=== PATIENT | female | born 1940 | race Caucasian/White ===

== ENCOUNTER 2021-01-09 08:52 | Outpatient (CLI) | payer OTHER, SELFPAY ==
--- NOTE | ~2021-01-09 | MM_ITS ---
EXAMINATION: MM screening juan BI w ember HISTORY: Screening TECHNIQUE: Craniocaudal and mediolateral oblique 3-D tomosynthesis images were obtained and synthetic 2-D images were generated. CAD analysis was submitted and interpreted. COMPARISON: Comparison to multiple prior studies sequentially, with oldest reviewed study dated 12/07. BREAST PARENCHYMAL COMPOSITION: There are scattered areas of fibroglandular density. FINDINGS: There is developing focal asymmetry superiorly in the right breast on MLO view. The left br east is stable without evidence for malignancy. IMPRESSION: 1. Developing right breast asymmetry superiorly on the right breast in MLO view. 2. Additional mammographic views and possible breast ultrasound are recommended. BI-RADS Category 0: Incomplete: Needs additional imaging evaluation. Reviewed, dictated and finalized at location A. IMPRESSION: 1. Developing right breast asymmetry superiorly on the right breast in MLO view . 2. Additional mammographic views and possible breast ultrasound are recommended . BI-RADS Category 0: Incomplete: Needs additional imaging evaluation.
== END 2021-01-09 08:53 | disposition home or self-care (01) ==
LOC: ANHIMG 08:54
PROVIDERS: PCP Family Medicine; Visit Provider Physician Assistant
DX: Z12.31 Encounter for screening mammogram for malignant neoplasm of breast (principal); R92.8 Other abnormal and inconclusive findings on diagnostic imaging of breast
CPT/HCPCS: 77063; 77067

== ENCOUNTER → 2021-01-30 08:32 | Outpatient (CLI) | payer OTHER, SELFPAY ==
--- NOTE | ~2021-01-30 | MMUS_ITS ---
EXAMINATION: MM diagnostic mammo unilat RT, US breast RT limited HISTORY: Developing mammographic asymmetry reported superiorly and right breast on screening MLO view of 01/09/2021 TECHNIQUE: Additional 3-D tomosynthesis images of were performed and synthetic 2-D images were genera wili. CAD analysis was submitted and interpreted. High resolution upper inner and upper outer right br east ultrasound was performed. COMPARISON: Serial mammographic examinations dating back to 11/19/2013 FINDINGS: MAMMOGRAPHIC FINDINGS: There is asymmetric density in the mid upper right breast. ULTRASOUND: At 12:00 5 cm from the nipple there is an irregular hypoechoic area measuring 12 x 3 x 7 mm. No inter nal vascularity is noted. There is however some shadowing. There is a nearby smaller approximately 2.6 x 3.4 mm similar irregular hypoechoic lesion with a small tail-like projection. Ultrasound-guided biopsy of these 2 areas is recommended. IMPRESSION: 1. Suspicious irregular hypoechoic lesions at 12:00 5 cm from nipple 2. Ultrasound-guided biopsy is recommended BI-RADS category 4, suspicious findings. Dr. Rivero telephoned the report and ultrasound guided biopsy recommendation on 01/30/2021 at 1000 hours to Tyrese Fowler. Reviewed, dictated and finalized at location A. IMPRESSION: 1. Suspicious irregular hypoechoic lesions at 12:00 5 cm from nipple 2. Ultrasound-guided biopsy is recommended BI-RADS category 4, suspicious findings. Dr. Rivero telephoned the report and ultrasound guided biopsy recommendation on at 1000 hours to Tyrese Fowler.
== END ==
PROVIDERS: PCP Family Medicine; Visit Provider Physician Assistant
DX: R92.8 Other abnormal and inconclusive findings on diagnostic imaging of breast (principal)
CPT/HCPCS: 76642; 77065

== ENCOUNTER 2021-03-30 09:10 | Outpatient (CLI) | payer OTHER, SELFPAY ==
--- NOTE | ~2021-03-30 | MMUS_ITS ---
US breast biopsy RT w image, MM post biopsy invasive RT EXAMINATION: US GUIDED NEEDLE BIOPSY WITH VAC UUM ASSISTANCE DATE: 03/30/2021 10:26 CDT INDICATION: Right breast mass seen on recent examination. Ultrasound-guided core biopsy is requested to evaluate for malignancy. TECHNIQUE AND FINDINGS: The risks and potential benefits of the procedure were discussed with the patient, and written inform ed consent was obtained. After sterile preparation of the right breast, 1% lidocaine was utilized fo r local anesthesia. 1% lidocaine with epinephrine was used for deep anesthesia. A 10G vacuum-assisted biopsy gun needle was advanced through to the outer edge of the region of inter est from a superior approach utilizing sonographic guidance. A total of three tissue core samples we re obtained through the lesion. Lesion located in the upper central aspect of the right breast. An In rad tissue marker clip was then placed at the biopsy site. Hemostasis was achieved. The patient tolerated procedure well and there was no evidence of immediate complication. The patien t was given verbal instructions partly is from the department. Right breast mammograms to document t issue marker clip placement. The tissue samples were submitted to surgical pathology for histologic a nalysis. IMPRESSION: 1. Successful ultrasound-guided vacuum-assisted biopsy of right breast mass with tissue marker place ment. Please refer to pathology report for histologic analysis. Reviewed, dictated and finalized at location A. IMPRESSION: 1. Successful ultrasound-guided vacuum-assisted biopsy of right breast mass wi th tissue marker placement. Please refer to pathology report for histologic zachary lysis.
== END 2021-03-30 09:11 | disposition home or self-care (01) ==
PROVIDERS: PCP Family Medicine; Visit Provider Family Medicine
DX: N63.11 Unspecified lump in the right breast, upper outer quadrant (principal)
CPT/HCPCS: 19083; 88305; 88341; 88342; A4648

== ENCOUNTER 2021-06-15 09:30 | Outpatient (RCR) | payer OTHER, SELFPAY ==
--- NOTE | 2021-05-08 09:48 | PTOPEVAL ---
Thank you for referring Nathaly Narayan to [facility].? The patient is scheduled to be seen for therapy? 1-2 x/week for 8 weeks. Please review, sign, date and return this plan of care AVEL. I agree with and certify that the following plan of care is medically necessary. Referring Physician Date Attending Provider: Juliana Dior MD Diagnosis right hip trochanteric bursitis Onset February 2021 Additional Evaluation Detail She has a flight of steps to basement and ramp to enter house. She tries to perform steps daily. Subjective Information She has been having issues Query Text:As Reported By Patient/ with right knee dislocating Family and going out at times. She wears a left compression sleeve knee brace. She has had the knee cap relocated in place 4-5x's. She received 2 cortison injection and steriods for the hip pain. The pain has improved to tolerable level now. She walks the TM up to .5 mile at slow speed. 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 She has difficulty with steps more related to heart issues vs leg. She limits her walking when her leg is painful. she has pain with sit<>stand motion from all surfaces. Previous Treatments Previous Treatments For This Problem 2014 acute rehab Pain Assessment Self Report Pain Assessment Right Knee(s) Reported Pain Level 0 Pain Description Aching Lowest Pain Intensity 0 Greatest Pain Intensity 3 Right Hip(s) Reported Pain Level 2 Pain Description Sharp Lowest Pain Intensity 0 Greatest Pain Intensity 5 Lower Extremity Muscle Strength Testing Hip Strength Left Hip Flexion Strength 3+ Fair + Hip Extension Strength 3- Fair - Hip Abduction Strength 3- Fair - Right Hip Flexion Strength 3 Fair Hip Extension Strength 3- Fair - Hip Abduction Strength 3- Fair - Knee Strength Left Knee Flexion Strength 3 Fair Knee Extension Strength 4+ Good + Right Knee Flexion Strength 3+ Fair + Knee Extension Strength 4- Good - Mu
--- NOTE | 2021-06-15 10:23 | PTOPEVAL ---
Physical therapy progress note/discharge note Thank you for referring Nathaly Narayan to [facility] She has attended 6 therapy visits from 05/08/21 to 06/14/21 to address hip pain. She has achieved maximal potential with skilled therapy services at this time. Will plan to DC skilled therapy services at this time with recommendations for Nathaly to continue with her HEP. Please review, sign, date and return this discharge summary AVEL. I agree with and certify that the following plan of care is medically necessary. Referring Physician Date Attending Provider: Juliana Dior MD Problem bursitis Onset February 2021 Additional Evaluation Detail She has a flight of steps to basement and ramp to enter house. She tries to perform steps daily. Subjective Information She is having swelling with Query Text:As Reported By Patient/ leg swelling due to medication Family changes. She denies any issues with right knee dislocating and going out since start of therapy. She was wearing a left compression sleeve knee brace, until she cut her leg on the car door. She walks the TM up to .5 mile at slow speed, but c/o SOB with walking. She reed 15 minutes. 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 She reports tightening of leg with walking. Pain Assessment Right Knee(s) Reported Pain Level 1 Pain Frequency Intermittent Lowest Pain Intensity 0 Greatest Pain Intensity 2 Right Hip(s) Reported Pain Level 0 Lowest Pain Intensity 0 Greatest Pain Intensity 0 Lower Extremity Muscle Strength Testing Hip Strength Left Hip Flexion Strength 4 Good Hip Extension Strength 3- Fair - Hip Abduction Strength 3- Fair - Right Hip Flexion Strength 4 Good Hip Extension Strength 3- Fair - Hip Abduction Strength 3- Fair - Knee Strength Left Knee Flexion Strength 3+ Fair + Knee Extension Strength 4+ Good + Right Knee Flexion Strength 4- Good - Knee Extension Strength 4+ Good + Muscle Length Testing Muscle Length Testing Two-Joint Hip Flexor Shortened Muscles Short (R) Iliopsoas,Short (L) Iliopsoas,Short (R) Rectus
== END 2021-07-24 10:04 | disposition home or self-care (01) ==
LOC: ANHPT 09:30
PROVIDERS: PCP Family Medicine; Visit Provider Family Medicine
DX: M70.61 Trochanteric bursitis, right hip (principal); S83.004D Unspecified dislocation of right patella, subsequent encounter
CPT/HCPCS: 97110; 97112; 97140; 97162

== ENCOUNTER 2021-09-08 10:47 | Inpatient (IN) | payer OTHER, SELFPAY ==
[2021-09-08] VITALS (14 sets, daily range): BP systolic 75–146; BP diastolic 36–69; PULSE 71–90; RESP 16–18; TEMP 36–36.5; O2SAT 96–100
--- NOTE | ~2021-09-08 | CT_ITS ---
EXAMINATION: CT abdomen pelvis w con DATE: 09/08/2021 12:52 INDICATION: Right abdominal pain. TECHNIQUE: Computed tomography (CT) of the abdomen and pelvis was performed with 100 mL Omnipaque 350 intravenous contrast. Automated exposure control and iterative reconstruction technique were employe d. The dose-length product was 1091.51 mGy-cm. COMPARISON: CT abdomen and pelvis 01/30/2016 FINDINGS: The visualized portions of the lung bases demonstrate mild atelectasis. There is smooth sep israel thickening bilaterally, consistent with mild pulmonary edema. There are multiple nodules bilatera lly measuring up to 4 mm, likely benign. No pleural effusion. There is left atrial enlargement of the heart. There are coronary artery calcifications. No pericardial effusion. There is a large sliding h iatal hernia. There are cysts in liver measuring up to 8 mm. There are low-attenuation lesions in the spleen measuring up to 10 mm. There is a peripheral wedge-shaped area of hypoattenuation in the sple en, consistent with infarct. There is a chronic 2.1 cm hyperenhancing mass in the spleen, likely rhea gn. The pancreas and left adrenal gland are normal. There is a chronic 9 mm mass in the right adrenal gland, likely an adenoma. There is cortical thinning of the kidneys. There are cysts in the kidneys measuring up to 9 mm on the right. There is diverticulosis of the colon without evidence of diverticu litis. There are no dilated loops of bowel. The appendix is normal. There are no pathologically enlar ged lymph nodes. There is no free intraperitoneal fluid. There is levoscoliosis of thoracic lumbar sp ine. There is a chronic compression fracture of L4. There is severe thoracolumbar spondylosis. IMPRESSION: 1. Mild pulmonary edema. 2. Large sliding hiatal hernia. 3. Small splenic lesions, worsened from 01/30/2016, likely granulomatous disease. 4. Small infarct of the spleen. Reviewed, dictated and finalized at location A. RIBUTION TRANSFORMER ASSEMBLER
--- NOTE | ~2021-09-08 | XR_ITS ---
EXAMINATION: XR chest 1V portable INDICATION: Cough TECHNIQUE: Portable AP chest at 1220 hours COMPARISON: 09/28/2019 FINDINGS: There are patchy bilateral airspace opacities. No pleural effusion or pneumothorax is ident ified. Cardiomegaly is noted. There is osteoarthritis of the shoulders IMPRESSION: 1. Patchy bilateral airspace opacities which could reflect atelectasis versus pneumonia versus pulmon анна edema. Reviewed, dictated and finalized at location B. ESS LABORATORY SPECIALIST IMPRESSION: 1. Patchy bilateral airspace opacities which could reflect atelectasis versus p neumonia versus pulmonary edema.
[2021-09-08 11:41] LABS: Basophils Absolute Auto 0.1 K/mm3 (0.0-0.1); Basophils Percent Auto 0.6 % (0.2-1.2); Eosinophils Absolute Auto 0.1 K/mm3 (0-0.3); Eosinophils Percent Auto 1.6 % (0-4.4); Hematocrit 31.3 % (37.0-47.0); Hemoglobin 9.6 g/dL (12.0-15.0); Immature Granulocyte Absolute 0.03 K/mm3 (0.00-0.031); Immature Granulocyte Percent A 0.4 % (0-0.5); Lymphocytes Percent Auto 9.5 % (18.3-44.2); Mean Corpuscular HGB Conc 30.7 g/dl (32-36); Mean Corpuscular Volume 81.5 fl (80-100); Mean Platelet Volume 10.4 fl (7.4-10.4); Monocytes Absolute Auto 0.8 K/mm3 (0.1-0.6); Monocytes Percent Auto 9.2 % (2.6-8.5); Neutrophils Absolute Auto 6.6 K/mm3 (1.3-6.7); Neutrophils Percent Auto 78.7 % (45.5-73.1); Platelet Count Result 291 k/mm3 (150-375); Red Blood Count 3.84 M/mm3 (4.2-5.4); Red Cell Distribution Width 16.5 % (11.5-14.5); White Blood Count 8.4 K/mm3 (4.5-10.0)
[2021-09-08 11:52] LABS: Alanine Aminotransferase 13 U/L (4-35); Albumin Level 3.8 g/dL (3.5-5.1); Alkaline Phosphatase 81 U/L (38-126); Anion Gap 7 mmol/L (8-16); Aspartate Amino Transferase 21 U/L (14-36); Bilirubin,Total 0.5 mg/dL (0.2-1.3); Blood Urea Nitrogen 47 mg/dL (7-17); Calcium 8.5 mg/dL (8.4-10.2); Carbon Dioxide 31 mmol/L (22-30); Chloride 103 mmol/L (98-107); Estimated CRCL calculation 32 ml/min; Estimated Glomerular Filt Rate 39; Glucose 106 mg/dL (65-110); INR 1.2; Potassium 3.9 mmol/L (3.4-5.0); Prothrombin Time 14.8 Seconds (11.1-14.7); Sodium 141 mmol/L (137-145)
[2021-09-08 11:53] LABS: Partial Thromboplastin Time 30.9 SECONDS (22.3-36.8)
--- NOTE | 2021-09-08 12:31 | ED.GENADULT ---
HPI - General Adult General Chief complaint: GI Bleed Stated complaint: shortness of breath Time Seen by Provider: 09/08/21 12:04 Source: RN notes reviewed History of Present Illness HPI narrative: Patient presents emergency department from home for GI bleed. Patient states for the past week she has been having black tarry stools states that she is having approximately 2 episodes a day she states that with this she is having shortness of breath whenever she gets up and moves around as well as pain in her right mid back that radiates around her abdomen she states this usually occurs approximately 30 minutes after eating pain is described as sharp and stabbing patient states she is on apixaban she denies any fevers or chills chest pain nausea vomiting diarrhea or any other symptoms Related Data Home Medications Medication Instructions Recorded Confirmed calcium carbonate 600 mg calcium 600 mg PO DAILY 09/22/19 08/18/21 (1,500 mg) tablet cholecalciferol (vitamin D3) 50 4,000 unit PO DAILY 09/22/19 08/18/21 mcg (2,000 unit) tablet ferrous sulfate [FerrouSul] 325 mg PO DAILY 09/28/19 08/18/21 Allergies Allergy/AdvReac Type Severity Reaction Status Date / Time heparin Allergy Unknown Swelling Verified 09/08/21 11:31 Heparin Analogues Allergy Unknown Swelling Verified 09/08/21 11:31 mold Allergy Unknown Unknown Verified 09/08/21 11:31 Review of Systems Review of Systems: Gen.: Denies fevers or chills ENT: Denies congestion Respiratory: Reports shortness of breath CV: Denies chest pain or palpitations GI: See HPI denies burning, urgency, frequency or hematuria Musculoskeletal: Denies back pain or muscle pain Neuro: Denies numbness, tingling, weakness or focal weakness Skin: Denies rash Except as documented, all other systems reviewed and negative [facility] Past Medical History Medical History (Updated 09/08/21 @ 14:52 by Marko Romero DO) Anemia Atherosclerosis of abdominal aorta Borderline diabetes Chronic diastolic congestive heart failure Echocardiogram February 2019: Normal left ventricular systolic function with EF of 60-65%, diastolic dysfunction with increased left heart filling pressures with E/E'of 15, atrial fibrillation, moderate left atrial enlargement, mild right atrial enlargement, small pericardial effusion. Descending aortic aneurysm (04/07/17) Diverticulosis Colonoscopy performed by Dr. Diaz March 2016. Esophageal stricture With history of dilatation. Gastroesophageal reflux disease Hiatal hernia Hypertension Hypertensive retinopathy of both eyes Osteopenia after menopause Paroxysmal atrial fibrillation Peripheral vascular disease Shingles (2015) Surgical History Surgical History (Updated 09/08/21 @ 14:25 by Oriana Franco PA-C) History of cholecystectomy (11/2013) History of total bilateral knee replacement Both were replaced in 2001 with right knee periprosthetic fracture March 2015. Status post cataract extraction of both eyes with insertion of intraocular lens Family History Family History Mother Family history of arthritis Social History Social History (Updated 09/08/21 @ 14:25 by Oriana Franco PA-C) Social History: The patient is and lives in her own home in [place]. She is a lifelong nonsmoker and does not drink alcohol or use illicit substances. She does have a history of secondhand smoke exposure. She reports that all of her siblings suffer from COPD. Code status is DNR per patient request. She would like her daughter Marleni Carrillo to be her surrogate decision maker. She has 3 children 1 lives in [facility], 1 lives in [place], and 1 lives in [facility]. Her primary care physician is Dr. Juliana Dior. Second hand tobacco smoke exposure: No Alcohol intake: never Substance use: never Substance use type: does not use Exam Narrative: APPEARANCE: No acute distr
--- NOTE | 2021-09-08 13:16 | ECG_ITS ---
Measurements Intervals [place] Rate: 80 P: TN: 0 QRS: 40 QRSD: 90 T: 25 QT: 391 QTc: 451 Interpretive Statements ATRIAL FIBRILLATION LOW QRS VOLTAGE IN PRECORDIAL LEADS MINIMAL Q WAVES- INFERIOR LEADS BASELINE ARTIFACT- I, II, AVR, AVL, AVF ABNORMAL ECG Electronically Signed On 09-08-2021 15:31:44 CERTIFIED NURSE OPERATING ROOM by Reji Smith D.O.
[2021-09-08 13:22] LABS: Lipase 64 U/L (23-300)
[2021-09-08 13:22] LABS: Add Urine Microscopic? NO; Appearance Urine Clear (Clear); Bilirubin Urine Negative (Negative); Blood Urine Negative (Negative); Color Urine Straw (Yellow); Glucose Urine UA Negative (Negative); Ketones Urine Negative (Negative); Leukocyte Esterase Ur Negative LEU/UL (Negative); Nitrate Urine Negative (Negative); Protein Urine Negative (Negative); Specific Grav Ur 1.011 (1.001-1.035); Urobilinogen Urine Negative mg/dL (<2.0)
[2021-09-08 14:12] LABS: NT Pro B Type Natriuretic Pept 2950 pg/mL (5-100); Troponin I < 0.012 ng/mL (0.000-0.034)
--- NOTE | 2021-09-08 14:15 | PM.IMHP ---
H&P: HPI History of Present Illness Date/Time: 09/08/21 14:15 Chief Complaint: Dark stools and shortness of breath. Narrative: This is an 80-year-old female with history of paroxysmal atrial fibrillation on long-term anticoagulation, hypertension, chronic anemia, diastolic congestive heart failure, and chronic kidney disease who presented to the emergency department earlier today from home for evaluation of dark stools and shortness of breath. She has been passing formed, dark stools for approximately 1 week and initially she thought it was related to her iron supplementation show she stop taking that however the dark stools have persisted. In the same onetime she has become progressively more fatigued and has been sleeping more than usual. She is also feeling short of breath with exertion. She has not had any nausea or vomiting but her appetite has been decreased. Her hemoglobin today is about a gram lower than what it typically runs and indeed she was found to be Hemoccult positive on rectal exam and she is being admitted in this setting. She did take her Eliquis this morning. She does take Aleve on occasion for generalized aches and pains, but certainly not daily. She has not had any abdominal pain, bloating, or belching. Weight has remained stable. Review of Systems Review of Systems: Twelve systems were reviewed. No fever, chills, or sweats. No syncope or near syncope. No sick contacts. She denies chest pain, pleuritic pain, palpitations. No cough. She has frequent edema in her lower extremities for which she wears compression stockings. Sometime in May she sustained a he wound to her left anterior champagne, bumping it on a car door. She has been on 2 rounds of antibiotics for that though it has not been healing well. She reports ongoing pain in the midback just right of center that she has a difficult time describing. She has not had any falls or accidents. No history of kidney stones. No dysuria or hematuria. Except as documented, all other systems were reviewed and are negative. [facility] Past Medical History Medical History (Updated 09/08/21 @ 21:00 by Oriana Franco PA-C) Anemia Atherosclerosis of abdominal aorta Borderline diabetes Chronic diastolic congestive heart failure Echocardiogram February 2019: Normal left ventricular systolic function with EF of 60-65%, diastolic dysfunction with increased left heart filling pressures with E/E'of 15, atrial fibrillation, moderate left atrial enlargement, mild right atrial enlargement, small pericardial effusion. Descending aortic aneurysm (04/07/17) Diverticulosis Colonoscopy performed by Dr. Diaz March 2016. Esophageal stricture With history of dilatation. Gastroesophageal reflux disease Hiatal hernia Hypertension Hypertensive retinopathy of both eyes Osteopenia after menopause Paroxysmal atrial fibrillation Peripheral vascular disease Shingles (2014) Surgical History Surgical History (Updated 09/08/21 @ 20:54 by Oriana Franco PA-C) History of cholecystectomy (11/2013) History of left breast biopsy History of total bilateral knee replacement Both were replaced in 2001 with right knee periprosthetic fracture March 2015. Status post cataract extraction of both eyes with insertion of intraocular lens Family History Family History Mother Family history of arthritis Social History Social History (Updated 09/08/21 @ 20:55 by Oriana Franco PA-C) Social History: The patient is and lives in her own home in [place]. She is a lifelong nonsmoker. No alcohol or illicit substance use. She designates her daughter Marleni Carrillo as her surrogate decision maker and she wishes to be a full code. Meds Home Medications and Allergies Home Medications Medication Instructions Recorded Confirmed Type calcium carbonate 600 mg calcium 600 mg PO DAILY 09/22/19 09/08/21 History (1,500 mg) tablet chol
--- NOTE | 2021-09-08 16:46 | ADMGEN ---
This patient, Nathaly Narayan, was admitted to Medical Room 257-01. Patient/family oriented to hospital policies and general routines including ID bracelet, bed and alarms, visiting hours, pain management, procedures, bathroom and other care routines, personal items, smoking policy, room service/diet, and visiting hours. Information on how to activate the Rapid Response Team has been discussed. Patient/Family are encouraged to report perceived risks to care and to ask questions if they do not understand what they are told or what they should do.
[2021-09-08] MEDS: SODIUM CHLORIDE 0.9% IV 1,000 ML 100 ML IV CONT (17:54)
[2021-09-08 18:10] LABS: Hematocrit 31.9 % (37.0-47.0); Hemoglobin 9.6 g/dL (12.0-15.0)
[2021-09-08 23:09] LABS: Hematocrit 29.5 % (37.0-47.0); Hemoglobin 9.2 g/dL (12.0-15.0)
[2021-09-08] MEDS: MUPIROCIN 2% OINT 22 GM TUBE 1 APPLIC TOPICAL (23:18)
[2021-09-09] VITALS (16 sets, daily range): BP systolic 80–140; BP diastolic 42–75; PULSE 64–97; RESP 16–18; TEMP 36.3–37.2; O2SAT 95–100
[2021-09-09 06:16] LABS: Basophils Absolute Auto 0.1 K/mm3 (0.0-0.1); Basophils Percent Auto 0.6 % (0.2-1.2); Eosinophils Absolute Auto 0.2 K/mm3 (0-0.3); Eosinophils Percent Auto 1.9 % (0-4.4); Hematocrit 32.8 % (37.0-47.0); Immature Granulocyte Absolute 0.03 K/mm3 (0.00-0.031); Immature Granulocyte Percent A 0.4 % (0-0.5); Lymphocytes Absolute Auto 0.97 K/mm3 (0.9-3.2); Lymphocytes Percent Auto 11.7 % (18.3-44.2); Mean Corpuscular HGB Conc 30.5 g/dl (32-36); Mean Corpuscular Hemoglobin 24.8 pg (26-34); Mean Corpuscular Volume 81.2 fl (80-100); Mean Platelet Volume 10.3 fl (7.4-10.4); Monocytes Absolute Auto 0.8 K/mm3 (0.1-0.6); Monocytes Percent Auto 9.2 % (2.6-8.5); Neutrophils Absolute Auto 6.3 K/mm3 (1.3-6.7); Neutrophils Percent Auto 76.2 % (45.5-73.1); Platelet Count Result 313 k/mm3 (150-375); Red Blood Count 4.04 M/mm3 (4.2-5.4); Red Cell Distribution Width 16.5 % (11.5-14.5); White Blood Count 8.3 K/mm3 (4.5-10.0)
[2021-09-09 06:26] LABS: Alanine Aminotransferase 18 U/L (4-35); Albumin Level 3.7 g/dL (3.5-5.1); Alkaline Phosphatase 86 U/L (38-126); Anion Gap 9 mmol/L (8-16); Aspartate Amino Transferase 24 U/L (14-36); Bilirubin,Total 0.6 mg/dL (0.2-1.3); Blood Urea Nitrogen 37 mg/dL (7-17); Calcium 8.3 mg/dL (8.4-10.2); Carbon Dioxide 26 mmol/L (22-30); Chloride 105 mmol/L (98-107); Estimated CRCL calculation 36 ml/min; Estimated Glomerular Filt Rate 43; Glucose 103 mg/dL (65-110); Sodium 140 mmol/L (137-145)
[2021-09-09 06:33] LABS: Magnesium 2.6 mg/dL (1.6-2.3)
[2021-09-09] MEDS: CHOLECALCIFEROL 1,000 UNITS TABLET 2000 UNITS PO ×2 (09:54→21:26)
[2021-09-09] MEDS: CALCIUM CARBONATE (OSCAL) 500 MG TABLET PO (09:54)
[2021-09-09] MEDS: SPIRONOLACTONE 25 MG TABLET PO (09:54)
[2021-09-09] MEDS: TORSEMIDE 20 MG TABLET PO (09:54)
[2021-09-09] MEDS: FERROUS SULFATE 324 MG TABLET PO (09:54)
[2021-09-09] MEDS: METOPROLOL SUCCINATE EXT REL 25 MG TABCR PO (09:55)
[2021-09-09] MEDS: MUPIROCIN 2% OINT 22 GM TUBE 1 APPLIC TOPICAL ×2 (09:55→21:27)
--- NOTE | 2021-09-09 10:39 | PM.IMPN ---
Progress Note: A&P Assessment and Plan (1) GI bleed: Code(s): K92.2 - Gastrointestinal hemorrhage, unspecified Status: Acute Assessment and Plan: Presented with black stools, found to be Hemoccult positive in ED Appreciate gastroenterology consultation Continue IV Protonix BID Continue p.o. ferrous sulfate; no plans for colonoscopy at this point Planning for EGD tomorrow She is hemodynamically stable. Continue to monitor H&H, which has improved today closer to baseline Eliquis on hold (2) Pulmonary edema: Code(s): J81.1 - Chronic pulmonary edema Status: Acute Assessment and Plan: Patient presents with increased shortness of breath, FARIAS, 10 pound weight gain, increased leg swelling. CXR shows patchy bilateral airspace opacities reflective of pulmonary edema. Echocardiogram is pending Received IV Lasix times 1 dose yesterday. Will repeat this today, monitoring renal function closely Continue torsemide and spironolactone. Monitor intake and output. (3) Chronic diastolic congestive heart failure: Code(s): I50.32 - Chronic diastolic (congestive) heart failure Status: Acute Assessment and Plan: See above (4) Renal insufficiency: Code(s): N28.9 - Disorder of kidney and ureter, unspecified Status: Acute Assessment and Plan: Her creatinine has been elevated from baseline for the last couple months, this may be due to her need for torsemide given her edema. Continue with cautious diuresis and monitor renal function closely. Renally dose medications and avoid nephrotoxins. (5) Right-sided thoracic back pain: Code(s): M54.6 - Pain in thoracic spine Status: Acute Assessment and Plan: Most likely musculoskeletal in etiology. CT of the abdomen/pelvis showed levoscoliosis of the thoracic and lumbar spine as well as severe thoracolumbar spondylosis. Supportive care. Analgesics available as needed (6) Splenic infarction: Code(s): D73.5 - Infarction of spleen Status: Acute Assessment and Plan: Incidentally noted to have small splenic infarction on her CT scan. She is asymptomatic She is anticoagulated with Eliquis for atrial fibrillation, though this is on hold at this time. (7) Wound of left leg: Qualifiers: Encounter type: initial encounter Qualified Code(s): S81.802A - Unspecified open wound, left lower leg, initial encounter Code(s): S81.802A - Unspecified open wound, left lower leg, initial encounter Status: Acute Assessment and Plan: Slow healing wound on left anterior champagne Will be evaluated by the wound care nurse if she remains hospitalized on Saturday. Continue with dressings and local wound care Bactroban topical ointment BID Subjective Date/time seen: 09/09/21 10:39 Interval history: Date of service: 09/09/2021 Nathaly Roman is an 80-year-old female with a history of anemia, chronic CHF, CKD, hypertension, paroxysmal atrial fibrillation on chronic anticoagulation who is seen in follow-up for GI bleed. She is feeling about the same today. Her biggest complaint at this time she is very hungry and would like to have something to eat or drink, though she is NPO at this time pending GI evaluation. Her secondary concern is her shortness of breath. At this time, she denies any significant shortness of breath but notes that she has not done anything today. She usually endorses dyspnea on exertion, though has had no activity today. Denies orthopnea. She feels very fatigued and reports being tired all the time. She had a small stool today that was tarry in color. She denies hematemesis, hematochezia, hematuria. Denies dizziness or lightheadedness. Denies palpitations. No chest pain. She does complain of right-sided back pain. She denies abdominal pain or epigastric pain. She also complains of pain in the left champagne for she has a wound. Gay
--- NOTE | 2021-09-09 11:24 | WPDGICN ---
Assessment and Plan Assessment and plan (1) Melena: Code(s): K92.1 - Melena Status: Acute Assessment and Plan: she is here with melena but hemodynamically stable, never had egd she is also on eliquis at home will do EGD to check if gib, on iv protonix for now monitor for more signs of bleeding (2) Acute on chronic blood loss anemia: Code(s): D62 - Acute posthemorrhagic anemia Status: Acute Assessment and Plan: trend h/h, transfuse if below 7 (3) GI bleed: Code(s): K92.2 - Gastrointestinal hemorrhage, unspecified Status: Acute (4) Splenic infarction: Code(s): D73.5 - Infarction of spleen Status: Acute Assessment and Plan: incidental finding ct scan, monitor (5) Pulmonary edema: Code(s): J81.1 - Chronic pulmonary edema Status: Acute Assessment and Plan: on treatment (6) CHF (congestive heart failure): Code(s): I50.9 - Heart failure, unspecified Status: Acute (7) Atrial fibrillation: Qualifiers: Atrial fibrillation type: unspecified Qualified Code(s): I48.91 - Unspecified atrial fibrillation Code(s): I48.91 - Unspecified atrial fibrillation Status: Acute Assessment and Plan: eliquis on hold (8) 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 She was concerned that she could have GIB and also has been feeling more fatigue than usual, says that her stools normally are not this dark when she takes iron and she even discontinued it but remained dark tarry. CXR reviewed and had mild pulmonary edema. Hb 9.2 (baseline 10-11), BUN 47 (20-30 previously). Never had EGD. She also had CT scan a/p that showed large sliding hiatal hernia, small splenic lesions, worsened from 01/30/2016, likely granulomatous disease, small infarct of the spleen. Started on iv protonix. She had colonoscopy in the past. Review of Systems Constitutional: Constitutional: Reports fatigue Eyes: Eyes: Reports no additional eye complaints ENT: Reports Normal hearing present Cardiovascular: Cardiovascular: Denies chest pain Respiratory: Respiratory: Reports dyspnea on exertion Gastrointestinal: Gastrointestinal: Reports melena Genitourinary: Genitourinary: Denies hematuria Musculoskeletal: Musculoskeletal: Denies neck pain Integumentary/Breasts: Skin/Breast: Denies dry skin Neurologic: Denies headache(s) Psychiatric: Psychiatric: Denies behavioral changes [facility] Past Medical History Medical History (Updated 09/09/21 @ 11:30 by Rahul Manzanares MD) Acute on chronic blood loss anemia Anemia Atherosclerosis of abdominal aorta Borderline diabetes Chronic diastolic congestive heart failure Echocardiogram February 2019: Normal left ventricular systolic function with EF of 60-65%, diastolic dysfunction with increased left heart filling pressures with E/E'of 15, atrial fibrillation, moderate left atrial enlargement, mild right atrial enlargement, small pericardial effusion. Descending aortic aneurysm (04/07/17) Diverticulosis Colonoscopy performed by Dr. Diaz March 2016. Esophageal stricture With history of dilatation. 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
--- NOTE | 2021-09-09 13:08 | WPDANESEPP ---
Anes - Eval Pre Procedure Procedure: egd Date/Time: 09/09/21 13:08 Surgeon: cami Preop Diagnosis: gi bleeding Pre Op Diagnosis: GI bleed/CHF Patient Data Age: 80 Gender: F Height: 1.63 m Weight: 96.8 kg Last Vital Signs Temp 36.3 C L 09/09/21 06:00 Pulse 76 09/09/21 09:55 Resp 18 09/09/21 06:00 BP 110/60 09/09/21 09:51 Pulse Ox 99 09/09/21 09:51 Allergies Allergy/AdvReac Type Severity Reaction Status Date / Time heparin Allergy Severe Swelling Verified 09/08/21 17:05 Heparin Analogues Allergy Severe Swelling Verified 09/08/21 17:05 mold Allergy Intermediate Wheezing Verified 09/08/21 17:05 Home Medications Medication Instructions Recorded Confirmed Type calcium carbonate 600 mg calcium 600 mg PO DAILY 09/22/19 09/08/21 History (1,500 mg) tablet cholecalciferol (vitamin D3) 50 2,000 unit PO QSHIFT 09/22/19 09/08/21 History mcg (2,000 unit) tablet ferrous sulfate [FerrouSul] 325 mg PO DAILY 09/28/19 09/08/21 History hydroxyzine HCl 25 mg tablet 25 mg PO BID PRN #60 tablet 05/12/21 09/08/21 Rx apixaban [Eliquis] 2.5 mg PO QSHIFT 09/08/21 09/08/21 History metoprolol succinate 25 mg PO DAILY 09/08/21 09/08/21 History mupirocin 1 applic TOPICAL QSHIFT 09/08/21 09/08/21 History naproxen sodium [Aleve] 220 mg PO PRN PRN 09/08/21 09/08/21 History polyethylene glycol 3350 [Miralax] 17 g PO DAILY 09/08/21 09/08/21 History spironolactone 25 mg PO DAILY 09/08/21 09/08/21 History torsemide 20 mg PO QSHIFT 09/08/21 09/08/21 History Laboratory Tests 09/08/21 09/08/21 09/08/21 13:05 13:05 13:13 WBC RBC Hgb Hct MCV MCH MCHC RDW Plt Count MPV Immature Gran % (Auto) Neut % (Auto) Lymph % (Auto) Webb % (Auto) Eos % (Auto) Baso % (Auto) Lymph # (Auto) Webb # (Auto) Eos # (Auto) Baso # (Auto) Abs Immat Gran (auto) Absolute Neuts (auto) Absolute Nucleated RBC Nucleated RBC % Sodium Potassium Chloride Carbon Dioxide Anion Gap BUN Creatinine Estim Creat Clear Calc Estimated GFR Glucose Calcium Magnesium Total Bilirubin AST ALT Alkaline Phosphatase Troponin I < 0.012 ng/mL ng/mL (0.000-0.034) NT-Pro-B Natriuret Pep 2950 pg/mL H pg/mL (5-100) Total Protein Albumin Lipase 64 U/L U/L (23-300) TSH (Reflex) Urine Color Straw (Yellow) Urine Appearance Clear (Clear) Urine pH 7.0 (5.0-9.0) Ur Specific Wisdom 1.011 (1.001-1.035) Urine Protein Negative mg/dL mg/dL (Negative) Urine Glucose (UA) Negative mg/dL mg/dL (Negative) Urine Ketones Negative mg/dL mg/dL (Negative) Ur Blood (Man) Negative (Negative) Urine Nitrate Negative (Negative) Urine Bilirubin Negative (Negative) Urine Urobilinogen Negative mg/dL mg/dL (<2.0) Leukocyte Esterase Rfl Negative DAWN/UL DAWN/UL (Negative) 09/08/21 09/08/21 09/09/21 18:02 22:57 06:03 WBC RBC Hgb 9.6 g/dL L g/dL 9.2 g/dL L g/dL (12.0-15.0) (12.0-15.0) Hct 31.9 % L % 29.5 % L % (37.0-47.0) (37.0-47.0) MCV MCH MCHC RDW Plt Count MPV Immature Gran % (Auto) Neut % (Auto) Lymph % (Auto) Webb % (Auto) Eos % (Auto) Baso % (Auto) Lymph # (Auto) Webb # (Auto)
[2021-09-09] MEDS: FUROSEMIDE INJ 40 MG/4 ML VIAL 20 MG IV PUSH (15:08)
--- NOTE | 2021-09-09 21:05 | ECHO_ITS ---
Patient Info Name: Nathaly Narayan Age: 80 years : 1940 Gender: Female Ht: 64 in Wt: 213 lbs BSA: 2.13 m2 HR: 88 bpm BP: 91 Technical Quality: Fair Exam Date: 09/09/2021 8:30 AM Exam Location: [facility] Patient Status: Outpatient Admit Date: 09/08/2021 Staff Ordering Physician: Oriana Franco PA-C Stock Checker: Nathaly Garcia RDCS Attending Provider: Ivania Bhatia PA-C Referring Physician: Salvador SANCHEZ; Exam Type: CA echo doppler color flow Study Info Indications I50.20 - Unspecified systolic (congestive) heart failure Complete two-dimensional, color flow and Doppler transthoracic echocardiogram is performed. Summary 1. Complete two-dimensional, color flow and Doppler transthoracic echocardiogram is performed. 2. Left ventricular chamber dimension is normal. 3. Left ventricular systolic function is normal, estimated at 60-65%. 4. The left ventricular diastolic function is abnormal. 5. E' 0.07 is abnormal suggests diastolic dysfunction. 6. Right ventricular systolic function is mildly reduced and with abnormal TAPSE 1.3 cm. 7. Left atrial chamber dimension is moderately enlarged. 8. The mitral valve has moderately calcified annulus. 9. There is mild mitral valve regurgitation. 10. There is mild to moderate tricuspid valve regurgitation. 11. Mild pulmonary hypertension, estimated pulmonary arterial systolic pressure is 40 mmHg. 12. There is small circumferential pericardial effusion. Left Ventricle E' 0.07 is abnormal suggests diastolic dysfunction. Left ventricular chamber dimension is normal. Left ventricular systolic function is normal, estimated at 60-65%. The left ventricular diastolic function is abnormal. Right Ventricle Right ventricular systolic function is mildly reduced and with abnormal TAPSE 1.3 cm. Right ventricular chamber dimension is normal. Left Atria Left atrial chamber dimension is moderately enlarged. Right Atria Right atrial chamber dimension is normal. Aortic Valve The aortic valve is trileaflet. There is no aortic valve stenosis. There is no aortic valve regurgitation. Pulmonic Valve There is no pulmonic regurgitation. Mitral Valve The mitral valve has moderately calcified annulus. There is no mitral valve stenosis. There is mild mitral valve regurgitation. Tricuspid Valve There is mild to moderate tricuspid valve regurgitation. Mild pulmonary hypertension, estimated pulmonary arterial systolic pressure is 40 mmHg. Pericardium/Pleural There is small circumferential pericardial effusion. Inferior Vena Cava Normal inferior vena cava with >50% collapse upon inspiration consistent with normal right atrial pressure, 5 mmHg. Aorta The aortic root size at the sinus of Valsalva is normal. Left Ventricular Outflow Tract Name Value Normal LVOT 2D LVOT Diameter 1.9 cm LVOT Doppler LVOT Peak Gradient 3 mmHg LVOT Mean Gradient 2 mmHg LVOT VTI 17 cm LVOT VTI/AV VTI Ratio 0.6 LVOT Stroke Volume
[2021-09-10] VITALS (14 sets, daily range): BP systolic 94–137; BP diastolic 38–71; PULSE 65–83; RESP 14–20; TEMP 36.4–36.9; O2SAT 97–100
[2021-09-10 05:09] LABS: Hematocrit 28.9 % (37.0-47.0)
[2021-09-10] MEDS: LACTATED RINGERS 1,000 ML 150 ML IV CONT (07:34)
--- NOTE | 2021-09-10 07:41 | WPDANESEFPP ---
Anes - Eval Final PreProcedure Day of Procedure 09/10/21 07:41 Patient weight: obese Heart: regular rate and rhythm Lungs: clear to auscultation and normal air movement Airway: Mallampati scale Neurological: alert and oriented Last oral intake: >/= 8 hours ASA classification: III Emergent: yes Anesthetic plan: proceed Anesthesia type and monitoring: general GIVS and standard monitoring Results Review: All pre-operative results and documents have been reviewed as part of the pre-operative evaluation. Informed Consent: The patient's anesthetic plan and its attendant risks and benefits were discussed with the patient/family/POA. Questions were solicited and answers provided to the satisfaction of the patient/family/POA.
[2021-09-10 07:43] LABS: Anion Gap 6 mmol/L (8-16); Blood Urea Nitrogen 34 mg/dL (7-17); Calcium 8.4 mg/dL (8.4-10.2); Carbon Dioxide 27 mmol/L (22-30); Chloride 105 mmol/L (98-107); Estimated CRCL calculation 36 ml/min; Estimated Glomerular Filt Rate 43; Glucose 98 mg/dL (65-110); Potassium 3.6 mmol/L (3.4-5.0); Sodium 138 mmol/L (137-145)
--- NOTE | 2021-09-10 09:37 | PC.NURSE ---
Returned from GI Lab. Report received from Alia GONSALEZ
[2021-09-10] MEDS: FERROUS SULFATE 324 MG TABLET PO (09:57)
[2021-09-10] MEDS: CALCIUM CARBONATE (OSCAL) 500 MG TABLET PO (09:57)
[2021-09-10] MEDS: CHOLECALCIFEROL 1,000 UNITS TABLET 2000 UNITS PO ×2 (09:58→20:59)
[2021-09-10] MEDS: polyethylene glycoL 3350 17 GM POWD.PACK PO (09:58)
[2021-09-10] MEDS: MUPIROCIN 2% OINT 22 GM TUBE 1 APPLIC TOPICAL ×2 (09:58→20:54)
[2021-09-10] MEDS: SPIRONOLACTONE 25 MG TABLET PO (09:58)
[2021-09-10] MEDS: METOPROLOL SUCCINATE EXT REL 25 MG TABCR PO (09:58)
[2021-09-10] MEDS: TORSEMIDE 20 MG TABLET PO (09:58)
[2021-09-10] MEDS: PANTOPRAZOLE 40 MG TABLET PO ×2 (10:02→20:59)
--- NOTE | 2021-09-10 13:53 | PM.IMPN ---
Progress Note: A&P Assessment and Plan (1) GI bleed: Code(s): K92.2 - Gastrointestinal hemorrhage, unspecified Status: Acute Assessment and Plan: Presented with black stools, found to be Hemoccult positive in ED Appreciate gastroenterology consultation Underwent EGD this afternoon which showed moderate erosive gastritis with small ulcers, likely the cause of upper GI bleeding. Protonix 40 mg b.i.d. She is hemodynamically stable. Continue to monitor H&H, which has improved today closer to baseline Hold Eliquis for 1 week per GI recommendations. Avoid NSAIDs. (2) Pulmonary edema: Code(s): J81.1 - Chronic pulmonary edema Status: Acute Assessment and Plan: Patient presents with increased shortness of breath, FARIAS, 10 pound weight gain, increased leg swelling. CXR shows patchy bilateral airspace opacities reflective of pulmonary edema. Echocardiogram reviewed shows evidence of right-sided heart failure with mildly reduced RV systolic function Will administer 20 mg IV Lasix given persistent shortness of breath Continue torsemide and spironolactone. Monitor intake and output. She is scheduled this week to have a sleep study in order to obtain a home CPAP machine. Reinforced need for follow-up with this appointment. (3) Chronic diastolic congestive heart failure: Code(s): I50.32 - Chronic diastolic (congestive) heart failure Status: Acute Assessment and Plan: Echo reviewed and shows abnormal diastolic function. See above (4) Renal insufficiency: Code(s): N28.9 - Disorder of kidney and ureter, unspecified Status: Acute Assessment and Plan: Her creatinine has been elevated from baseline for the last couple months, this may be due to her need for torsemide given her edema. Renal function has been remaining stable. Creatinine 1.2 today. Continue with cautious diuresis and monitor renal function closely. Renally dose medications and avoid nephrotoxins. (5) Right-sided thoracic back pain: Code(s): M54.6 - Pain in thoracic spine Status: Acute Assessment and Plan: Most likely musculoskeletal in etiology. CT of the abdomen/pelvis showed levoscoliosis of the thoracic and lumbar spine as well as severe thoracolumbar spondylosis. Supportive care. Analgesics available as needed (6) Splenic infarction: Code(s): D73.5 - Infarction of spleen Status: Acute Assessment and Plan: Incidentally noted to have small splenic infarction on her CT scan. She is asymptomatic She is anticoagulated with Eliquis for atrial fibrillation, though this is on hold at this time. (7) Wound of left leg: Qualifiers: Encounter type: initial encounter Qualified Code(s): S81.802A - Unspecified open wound, left lower leg, initial encounter Code(s): S81.802A - Unspecified open wound, left lower leg, initial encounter Status: Acute Assessment and Plan: Slow healing wound on left anterior champagne Continue with dressings and local wound care Bactroban topical ointment BID Consult to Wound Care nurse; input is appreciated (8) Normocytic anemia: Code(s): D64.9 - Anemia, unspecified Status: Acute Assessment and Plan: Possibly related to GI bleed as above, though not significantly decreased from her baseline. Hemoglobin declined to 9.0 this morning. No further melena or other episodes of bleeding. Repeat H&H tomorrow and continue to monitor closely Continue p.o. ferrous sulfate Subjective Date/time seen: 09/10/21 13:53 Interval history: Date of service: 09/10/2021 Nathaly Roman is an 80-year-old female with a history of anemia, chronic CHF, CKD, hypertension, paroxysmal atrial fibrillation on chronic anticoagulation who is seen in follow-up for GI bleed and pulmonary edema. She is feeling a bit better today. She is no longer having dark/tarry stools. She
[2021-09-11 05:59] LABS: Hematocrit 32.4 % (37.0-47.0); Hemoglobin 9.8 g/dL (12.0-15.0)
[2021-09-11 06:00] VITALS: BP 119/55; PULSE 63; RESP 16; TEMP 36.7; O2SAT 100
[2021-09-11 06:11] LABS: Anion Gap 7 mmol/L (8-16); Blood Urea Nitrogen 31 mg/dL (7-17); Calcium 8.6 mg/dL (8.4-10.2); Carbon Dioxide 28 mmol/L (22-30); Chloride 104 mmol/L (98-107); Estimated CRCL calculation 33 ml/min; Estimated Glomerular Filt Rate 39; Glucose 106 mg/dL (65-110); Potassium 3.7 mmol/L (3.4-5.0); Sodium 139 mmol/L (137-145)
[2021-09-11 08:00] VITALS: PULSE 68
[2021-09-11] MEDS: CALCIUM CARBONATE (OSCAL) 500 MG TABLET PO (08:00)
[2021-09-11] MEDS: CHOLECALCIFEROL 1,000 UNITS TABLET 2000 UNITS PO (08:00)
[2021-09-11] MEDS: FERROUS SULFATE 324 MG TABLET PO (08:00)
[2021-09-11] MEDS: SPIRONOLACTONE 25 MG TABLET PO (08:00)
[2021-09-11] MEDS: METOPROLOL SUCCINATE EXT REL 25 MG TABCR PO (08:00)
[2021-09-11] MEDS: PANTOPRAZOLE 40 MG TABLET PO (08:00)
[2021-09-11] MEDS: TORSEMIDE 20 MG TABLET PO (08:00)
[2021-09-11] MEDS: MUPIROCIN 2% OINT 22 GM TUBE 1 APPLIC TOPICAL (08:01)
[2021-09-11 08:55] VITALS: BP 107/54
[2021-09-11 09:04] VITALS: BP 127/42; BP 140/54
--- NOTE | 2021-09-11 11:43 | PM.DS ---
DS: Admitting Diagnosis Discharge Date 09/11/2021 Admitting Diagnosis GI bleed DS: Discharge Diagnosis Discharge Diagnosis (1) GI bleed: Code(s): K92.2 - Gastrointestinal hemorrhage, unspecified Status: Acute Assessment and Plan: Presented with black stools, found to be Hemoccult positive in ED. She was started on Protonix and seen in consultation by Gastroenterology. She had an EGD on 09/10/2021 which showed moderate erosive gastritis with small ulcers, likely the cause of her upper GI bleeding. She remained hemodynamically stable. H&H remained stable and improved closer to her baseline. She will continue Protonix twice daily. Eliquis will be held for 1 week per GI recommendations. NSAIDs to be avoided. Follow-up with GI for repeat EGD in 3 months. (2) Pulmonary edema: Code(s): J81.1 - Chronic pulmonary edema Status: Acute Assessment and Plan: Patient presented with increased shortness of breath, FARIAS, 10 pound weight gain, increased leg swelling. CXR showed patchy bilateral airspace opacities reflective of pulmonary edema. She was diuresed with IV Lasix as tolerated by her blood pressure and renal function. Home torsemide and spironolactone continued. She did have symptomatic improvement with diuresis. Echocardiogram reviewed which showed evidence of right-sided heart failure with mildly reduced RV systolic function, LV EF 60-65% and abnormal diastolic function. CHF Education provided. She is scheduled this week to have a sleep study in order to obtain a home CPAP machine. Reinforced need for follow-up with this appointment. (3) Chronic diastolic congestive heart failure: Code(s): I50.32 - Chronic diastolic (congestive) heart failure Status: Acute Assessment and Plan: Echo reviewed and showed abnormal diastolic function. CHF Education discussed at length, including dietary recommendations for low-sodium diet. Discussed maintaining appropriate balance with fluid intake given her orthostatic hypotension while avoiding overhydration given her risk for pulmonary edema (4) Renal insufficiency: Code(s): N28.9 - Disorder of kidney and ureter, unspecified Status: Acute Assessment and Plan: Her creatinine has been elevated from baseline for the last couple months, this may be due to her need for torsemide given her edema. Renal function remained stable during her hospital stay. Creatinine 1.3 at time of discharge per (5) Right-sided thoracic back pain: Code(s): M54.6 - Pain in thoracic spine Status: Acute Assessment and Plan: Most likely musculoskeletal in etiology. CT of the abdomen/pelvis showed levoscoliosis of the thoracic and lumbar spine as well as severe thoracolumbar spondylosis. Supportive care provided (6) Splenic infarction: Code(s): D73.5 - Infarction of spleen Status: Acute Assessment and Plan: Incidentally noted to have small splenic infarction on her CT scan. She was asymptomatic. She is anticoagulated with Eliquis for atrial fibrillation, though this will be held for 1 week as above (7) Wound of left leg: Qualifiers: Encounter type: initial encounter Qualified Code(s): S81.802A - Unspecified open wound, left lower leg, initial encounter Code(s): S81.802A - Unspecified open wound, left lower leg, initial encounter Status: Acute Assessment and Plan: Slow healing wound on left anterior champagne. This was assessed by Wound Care. Continue Bactroban and silver gel local wound care. She has an appointment for RENE scheduled for assessment of poor healing wounds. Continue follow-up with PCP (8) Normocytic anemia: Code(s): D64.9 - Anemia, unspecified Status: Acute Assessment and Plan: Possibly related to GI bleed as above, though not significantly decreased from her baseline. Hemoglobin stable between 9.0-10.0 during admission. No further me
--- NOTE | 2021-09-11 11:59 | WPDGIPROGNO ---
Progress Note: A&P Assessment and Plan (1) Gastric ulcer: Code(s): K25.9 - Gastric ulcer, unspecified as acute or chronic, without hemorrhage or perforation Status: Acute Assessment and Plan: erosive gastritis with small ulcers without active bleeding will go home with ppi twice daily, avoid nsaid's and will repeat EGD in 3 months to check for healing (2) Acute on chronic blood loss anemia: Code(s): D62 - Acute posthemorrhagic anemia Status: Acute Assessment and Plan: hb stable, hold eliquis for 7 days and repeat CBC as outpatient (3) Melena: Code(s): K92.1 - Melena Status: Acute (4) Chronic diastolic congestive heart failure: Code(s): I50.32 - Chronic diastolic (congestive) heart failure Status: Acute Assessment and Plan: stable Subjective Date/time seen: 09/11/21 11:59 Interval history: she is doing well and going home later today. EGD yesterday with large hiatal hernia and small gastric ulcers. Review of Systems Review of Systems: All systems reviewed & are unremarkable except as noted in HPI and below Exam Const: General: comfortable and no acute distress HENMT: General nose exam: Normal nares present Eyes: General: appearance normal, both eyes and all related structures Neck: Neck: supple Resp: Auscultation: clear to auscultation bilaterally Cardio: Rate: regular rate GI: GI Palp: Yes Soft to palpation, No Tenderness to palpation present (GI) and No Guarding due to palpation present (GI) Auscultation: normal bowel sounds Skin: General skin exam: no rashes or lesions noted Neuro: Speech: normal speech Motor exam (neuro): Normal motor muscle tone present throughout Extrem: General: normal to inspection Psych: Mental Status: mental status grossly normal Objective Data Vital Signs Vital Signs: Vital Signs - 24 hr 09/10/21 14:55 09/10/21 14:56 09/10/21 14:57 Temperature Pulse Rate 83 76 76 Respiratory Rate Blood Pressure 94/38 L 105/66 97/51 L Pulse Oximetry 09/10/21 14:58 09/10/21 20:25 09/10/21 20:30 Temperature 97.7 F 97.6 F 97.6 F Pulse Rate 83 70 70 Respiratory Rate 16 16 16 Blood Pressure 94/38 L 122/61 135/71 Pulse Oximetry 100 97 97 11/14/21 20:31 09/11/21 06:00 09/11/21 08:00 Temperature 98.1 F Pulse Rate 63 68 Respiratory Rate 16 Blood Pressure 107/54 L 119/55 L Pulse Oximetry 100 09/11/21 08:55 09/11/21 09:04 Temperature Pulse Rate Respiratory Rate Blood Pressure 107/54 L 127/42 L Pulse Oximetry Intake/Output Intake/Output: Intake & Output 09/08/21 09/09/21 09/10/21 09/11/21 23:59 23:59 23:59 23:59 Intake Total 225 720 880 740 Output Total 2050 500 Balance 225 -1330 380 740 Meds/Results Medications: Active Medications Generic Name Dose Route Start Last Admin Trade Name Freq PRN Reason Stop Dose Admin Calcium Carbonate 500 mg 09/09/21 09:00 09/11/21 08:00 Calcium Carbonate (Oscal) 500 Mg Tablet PO 10/09/21 08:59 500 mg DAILY MEGAN Administration Ferrous Sulfate 324 mg 09/09/21 08:00 09/11/21 08:00 Ferrous Sulfate 324 Mg Tablet PO 324 mg DAILY@0800 MEGAN Administration Hydroxyzine HCl 25 mg 09/08/21 21:08 Hydroxyzine Hcl 25 Mg Tablet PO BID PRN itching Metoprolol Succinate 25 mg 09/09/21 09:00 09/11/21 08:00 Metoprolol Succinate Ext Rel 25 Mg Tabcr PO 25 mg DAILY MEGAN Administration Mupirocin 1 applic 09/11/21 09:00 Mupirocin 2% Oint 22 Gm Tube TOPICAL DAILY MEGAN Pantoprazole Sodium 40 mg 09/10/21 09:09 09/11/21 08:00 Pantoprazole 40 Mg Tablet PO 40 mg Q12HR MEGAN Administration Polyethylene Glycol 17 gm 09/09/21 09:00 09/11/21 08:01 Polyethylene Glycol 3350 17 Gm Powd.Pack PO Not Given DAILY [facility] Silver Nitrate 1 applic 09/11/21 09:00 Silvergel (Elta) 45 Ml TOPICAL DAILY MEGAN Spironolactone 25 mg 09/09/21 09:00 09/11/21 08:00 Spironolactone 2
== END 2021-09-11 12:38 | disposition home or self-care (01) | DRG 378 ==
LOC: ANHED 14:52 → ANH2MED 16:30
PROVIDERS: Emergency Medicine; Internal Medicine Gastroenterology; Physician Assistant; Admitting Provider Internal Medicine; Emergency Provider Emergency Medicine; PCP Family Medicine; Visit Provider Internal Medicine
PROC: 0DJ08ZZ Inspection of Upper Intestinal Tract, Via Natural or Artificial Opening Endoscopic (ICD-10-PCS; CPT 43235; principal; 2021-09-10 08:30)
DX: K25.4 Chronic or unspecified gastric ulcer with hemorrhage (principal); I50.32 Chronic diastolic (congestive) heart failure; D62 Acute posthemorrhagic anemia; I13.0 Hypertensive heart and chronic kidney disease with heart failure and stage 1 through stage 4 chronic kidney disease, or unspecified chronic kidney disease; N18.9 Chronic kidney disease, unspecified; H35.033 Hypertensive retinopathy, bilateral; K44.9 Diaphragmatic hernia without obstruction or gangrene; I95.1 Orthostatic hypotension; I48.0 Paroxysmal atrial fibrillation; I73.9 Peripheral vascular disease, unspecified; M54.6 Pain in thoracic spine; D73.5 Infarction of spleen; S81.802A Unspecified open wound, left lower leg, initial encounter; K21.9 Gastro-esophageal reflux disease without esophagitis; R73.03 Prediabetes; Z66 Do not resuscitate; Z98.42 Cataract extraction status, left eye; Z98.41 Cataract extraction status, right eye; Z96.1 Presence of intraocular lens; Z79.01 Long term (current) use of anticoagulants; Z79.899 Other long term (current) drug therapy
CPT/HCPCS: 36415; 71045; 74177; 80048; 80053; 81003; 83690; 83735; 83880; 84443; 84484; 85014; 85018; 85025; 85610; 85730; 86850; 86900; 86901; 87081; 88305; 93005; 93306; 96374; 99285; A9270; G0378; J1940; J2704; J7030; J7120; Q9967

== ENCOUNTER → 2021-09-13 08:12 | Outpatient (CLI) | payer OTHER, SELFPAY ==
[2021-09-13 18:47] LABS: SARS-CoV-2 RNA PCR Negative
== END ==
PROVIDERS: Nurse Practitioner Gerontology; PCP Family Medicine; Visit Provider Family Medicine
DX: R68.89 Other general symptoms and signs (principal); Z20.822 Contact with and (suspected) exposure to COVID-19
CPT/HCPCS: C9803; U0003; U0005

== ENCOUNTER 2021-10-03 08:25 | Outpatient (CLI) | payer OTHER, SELFPAY ==
--- NOTE | ~2021-10-03 | US_ITS ---
EXAMINATION: US art doppler w press LE BI DATE: 10/03/2021 09:48 INDICATION: Slowly healing (wound at the left lower leg TECHNIQUE: Segmental pressures and plethysmographic and Doppler waveforms of the brachial and lower e xtremity arteries were obtained. COMPARISON: None. FINDINGS: Right and left brachial artery pressures of 137 mm Hg and 123 mm Hg, respectively, are concordant (no rmal difference <= 30 mmHg). The right and left high-thigh pressure indices are unable to be obtained due to inability to occlude the vessels in either thigh. The right ankle-brachial index (RENE) is 0.72 (normal >= 0.9-1). The right great toe-brachial index (T BI) is 0.48 (normal >= 0.6-0.8). The right lower extremity segmental pressure gradients are increased between the right posterior tibial artery and the right [id number] popliteal artery, the right d orsalis pedis artery and the contralateral left posterior tibial artery. There is also an increased g radient between the right dorsalis pedis artery and the contralateral left dorsalis pedis artery (nor mal gradients <= 20-30 mmHg between adjacent levels on the same leg or the same levels on the two leg s). Arterial waveforms are biphasic throughout the arteries of the right lower limb with delayed upst rokes at the right posterior tibial and dorsalis pedis arteries. Cardiac arrhythmia is present. The left RENE is 1.04. The left TBI is 0.47. The left lower extremity segmental pressure gradients are normal. Arterial waveforms are biphasic with brisk systolic upstrokes throughout the arteries at the left lower limb. IMPRESSION: 1. Bilateral arterial occlusive disease with moderately decreased right RENE and mild to moderately de creased bilateral TBI's. Reviewed, dictated and finalized at location B. NURSE IMPRESSION: 1. Bilateral arterial occlusive disease with moderately decreased right RENE and mild to moderately decreased bilateral TBI's.
== END 2021-10-03 08:26 | disposition home or self-care (01) ==
LOC: ANHIMG 08:30
PROVIDERS: PCP Family Medicine; Visit Provider Family Medicine
DX: S81.802A Unspecified open wound, left lower leg, initial encounter (principal); I73.89 Other specified peripheral vascular diseases
CPT/HCPCS: 93923

== ENCOUNTER 2021-11-15 00:48 | Day surgery (SDC) | payer OTHER, SELFPAY ==
[2021-11-09 14:06] VITALS: BMI 35.2
--- NOTE | 2021-11-15 02:23 | WPDANESEPPF ---
Anes - Initial Pre Proc Eval Procedure: Operation Date: 11/15/21 08:00 Proposed Procedures p Esophagogastroduodenoscopy - Rahul Manzanares MD Date/Time: 11/15/21 02:23 Surgeon: Rahul Manzanares MD Pre Op Diagnosis: gastric ulcer Patient Data Age: 80 Gender: F Height: 1.63 m Weight: 93 kg Allergies Allergy/AdvReac Type Severity Reaction Status Date / Time heparin Allergy Severe Swelling Verified 11/15/21 06:55 Heparin Analogues Allergy Severe Swelling Verified 11/15/21 06:55 mold Allergy Intermediate Wheezing Verified 11/15/21 06:55 Home Medications Medication Instructions Recorded Confirmed Type calcium carbonate 600 mg calcium 600 mg PO DAILY 09/22/19 11/15/21 History (1,500 mg) tablet cholecalciferol (vitamin D3) 50 2,000 unit PO QSHIFT 09/22/19 11/15/21 History mcg (2,000 unit) tablet ferrous sulfate [FerrouSul] 325 mg PO DAILY 09/28/19 11/15/21 History hydroxyzine HCl 25 mg tablet 25 mg PO BID PRN #60 tablet 05/12/21 11/15/21 Rx metoprolol succinate 25 mg PO DAILY 09/08/21 11/15/21 History polyethylene glycol 3350 [Miralax] 17 g PO DAILY 09/08/21 11/15/21 History spironolactone 25 mg PO DAILY 09/08/21 11/15/21 History torsemide 20 mg PO QSHIFT 09/08/21 11/15/21 History mupirocin 1 applic TOPICAL DAILY #0 g 09/11/21 11/15/21 Rx silver [Silver-Sept] 1 applic TOPICAL DAILY #45 g 09/11/21 11/15/21 Rx rivaroxaban [Xarelto] 15 mg PO QPM 11/09/21 11/15/21 History pantoprazole 40 mg tablet,delayed 40 mg PO DAILY #30 tablet 11/15/21 Rx release Patient hx anesthesia problems: none Family hx anesthesia problems: none Results Review: All pre-operative results and documents have been reviewed as part of the pre-operative evaluation. [facility] Past Medical History Medical History (Updated 11/15/21 @ 02:24 by Jean Moore DO) Acute on chronic blood loss anemia Anemia Atherosclerosis of abdominal aorta Atrial fibrillation Borderline diabetes Chronic diastolic congestive heart failure Echocardiogram February 2019: Normal left ventricular systolic function with EF of 60-65%, diastolic dysfunction with increased left heart filling pressures with E/E'of 15, atrial fibrillation, moderate left atrial enlargement, mild right atrial enlargement, small pericardial effusion. Compression fracture of L4 vertebra Descending aortic aneurysm (04/07/17) Diverticulosis Colonoscopy performed by Dr. Diaz March 2016. Esophageal stricture With history of dilatation. 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 Status post cataract extraction of both eyes with insertion of intraocular lens Family History Family History Mother Family history of arthritis Social History Social History (Updated 09/26/21 @ 15:05 by Venus [place]) Social History: The patient is and lives in her own home in [place]. She is a lifelong nonsmoker. No alcohol or illicit substance use. She designates her daughter Marleni Carrillo as her surrogate decision maker and she wishes to be a full code. Smoking status: Never smoker Second hand tobacco smoke exposure: No Alcohol intake: current Substance use: never Substance use type: does not use Living arrangements: alone Gender identity (if verbalized by the patient): Female Sexual Orientation (if Verbalized by the Patient): Straight or Heterosexual Spiritual care concerns: No Anes - Eval
[2021-11-15 06:45] VITALS: BP 101/59; PULSE 86; RESP 16; TEMP 36.1; O2SAT 96; BMI 35.6
[2021-11-15] MEDS: LACTATED RINGERS 1,000 ML 150 ML IV CONT (07:04)
--- NOTE | 2021-11-15 07:55 | PM.HPGS ---
History of Present Illness History of Present Illness Consent: Risks, benefits, and alternatives have been discussed and questions answered. Patient agrees to proceed with procedure. Chief complaint: gastric ulcer Narrative: Nathaly Narayan is a 80 year old female wiht melena due to ulcerative gastritis, denies any more episode and better, now using xarelto instead of eliquis. Review of Systems Constitutional: Constitutional: Denies headache(s) and Denies weakness Eyes: Eyes: Denies blurry vision ENT: Reports Normal hearing present, Denies headache(s) and Denies neck pain Cardiovascular: Cardiovascular: Denies chest pain and Denies dyspnea Respiratory: Respiratory: Denies dyspnea Gastrointestinal: Gastrointestinal: Reports no additional gastrointestinal complaints Genitourinary: Genitourinary: Denies dysuria Musculoskeletal: Musculoskeletal: Denies neck pain Integumentary/Breasts: Skin/Breast: Denies dry skin Neurologic: Reports Normal hearing present, Denies headache(s) and Denies weakness Psychiatric: Psychiatric: Denies anxiety Endocrine: Endocrine: Denies change in body appearance Hematologic/Lymphatic: Hematologic/Lymphatic: Denies easy bleeding Allergic/Immunologic: Allergic/Immunologic: Denies urticaria [facility] Past Medical History Medical History (Updated 11/15/21 @ 02:24 by Jean Moore DO) Acute on chronic blood loss anemia Anemia Atherosclerosis of abdominal aorta Atrial fibrillation Borderline diabetes Chronic diastolic congestive heart failure Echocardiogram February 2019: Normal left ventricular systolic function with EF of 60-65%, diastolic dysfunction with increased left heart filling pressures with E/E'of 15, atrial fibrillation, moderate left atrial enlargement, mild right atrial enlargement, small pericardial effusion. Compression fracture of L4 vertebra Descending aortic aneurysm (04/07/17) Diverticulosis Colonoscopy performed by Dr. Diaz March 2016. Esophageal stricture With history of dilatation. Gastric ulcer Gastroesophageal reflux disease Hiatal hernia Hx of long-term use of blood thinners Hypertension Hypertensive retinopathy of both eyes Melena Osteopenia after menopause Paroxysmal atrial fibrillation Peripheral vascular disease [place] (2014) Surgical History Surgical History History of cholecystectomy (11/2013) History of left breast biopsy History of total bilateral knee replacement Both were replaced in 2001 with right knee periprosthetic fracture March 2015. Status post cataract extraction of both eyes with insertion of intraocular lens Family History Family History Mother Family history of arthritis Social History Social History (Updated 09/26/21 @ 15:05 by Venus [place]) Social History: The patient is and lives in her own home in [place]. She is a lifelong nonsmoker. No alcohol or illicit substance use. She designates her daughter Marleni Carrillo as her surrogate decision maker and she wishes to be a full code. Smoking status: Never smoker Second hand tobacco smoke exposure: No Alcohol intake: current Substance use: never Substance use type: does not use Living arrangements: alone Gender identity (if verbalized by the patient): Female Sexual Orientation (if Verbalized by the Patient): Straight or Heterosexual Spiritual care concerns: No Meds Home Medications and Allergies Home Medications Medication Instructions Recorded Confirmed Type calcium carbonate 600 mg calcium 600 mg PO DAILY 09/22/19 11/15/21 History (1,500 mg) tablet cholecalciferol (vitamin D3) 50 2,000 unit PO QSHIFT 09/22/19 11/15/21 History mcg (2,000 unit) tablet ferrous sulfate [FerrouSul] 325 mg PO DAILY 09/28/19 11/15/21 History hydroxyzine HCl 25 mg tablet 25 mg PO BID PRN #60 tablet 05/12/21 11/15/21 Rx metoprolol succinat
[2021-11-15 08:14] VITALS: BP 106/50; PULSE 73; RESP 17; O2SAT 96
[2021-11-15 08:24] VITALS: BP 112/68; PULSE 74; RESP 18; O2SAT 99
[2021-11-15 08:34] VITALS: BP 125/62; PULSE 74; RESP 18; O2SAT 98
== END 2021-11-15 08:43 | disposition home or self-care (01) ==
PROVIDERS: PCP Family Medicine; Visit Provider Internal Medicine Gastroenterology
PROC: 0DJ08ZZ Inspection of Upper Intestinal Tract, Via Natural or Artificial Opening Endoscopic (ICD-10-PCS; CPT 43235; principal; 2021-11-15 08:00)
DX: K92.1 Melena (principal); K44.9 Diaphragmatic hernia without obstruction or gangrene; K29.70 Gastritis, unspecified, without bleeding; K21.9 Gastro-esophageal reflux disease without esophagitis; Z87.11 Personal history of peptic ulcer disease; D62 Acute posthemorrhagic anemia; I11.0 Hypertensive heart disease with heart failure; I50.32 Chronic diastolic (congestive) heart failure; I70.0 Atherosclerosis of aorta; I71.9 Aortic aneurysm of unspecified site, without rupture; H35.033 Hypertensive retinopathy, bilateral; I48.0 Paroxysmal atrial fibrillation; R73.03 Prediabetes; M85.80 Other specified disorders of bone density and structure, unspecified site; I73.9 Peripheral vascular disease, unspecified; Z79.01 Long term (current) use of anticoagulants
CPT/HCPCS: 43235; J2704; J7120

== ENCOUNTER → 2022-08-07 09:49 | Outpatient (CLI) | payer OTHER, SELFPAY ==
--- NOTE | ~2022-08-07 | XR_ITS ---
EXAMINATION: XR chest 2V DATE: 08/07/2022 10:09 INDICATION: Unspecified atrial fibrillation TECHNIQUE: PA and lateral views of the chest are obtained. COMPARISON: 09/08/2021 FINDINGS: There are small pleural effusions. Minimal airspace opacities are present in the lung bases . Cardiomegaly is noted. There is no pneumothorax. There is moderate thoracic spondylosis. IMPRESSION: 1. Minimal bibasilar airspace opacities, consistent with atelectasis versus pneumonia. 2. Small pleural effusions. Reviewed, dictated and finalized at location A. IMPRESSION: 1. Minimal bibasilar airspace opacities, consistent with atelectasis versus pne umonia. 2. Small pleural effusions.
== END ==
PROVIDERS: PCP Family Medicine; Visit Provider Nurse Practitioner Gerontology
DX: I48.91 Unspecified atrial fibrillation (principal); I50.9 Heart failure, unspecified; I73.9 Peripheral vascular disease, unspecified; R73.03 Prediabetes; J90 Pleural effusion, not elsewhere classified
CPT/HCPCS: 71046

== ENCOUNTER → 2022-09-24 08:32 | Outpatient (CLI) | payer OTHER, SELFPAY ==
--- NOTE | ~2022-09-24 | XR_ITS ---
XR chest 2V DATE: 09/24/2022 08:43 INDICATION: Shortness of breath for several years. History of congestive heart failure. TECHNIQUE: 2 views COMPARISON: 08/07/2022 2 view chest FINDINGS: There is cardiomegaly. There is aortic calcification, ectasia and unfolding. No pulmonary infiltrate or consolidation or pleural effusion. There is pulmonary vascular redistribut ion which suggests pulmonary venous hypertension. Diffuse osteopenia. IMPRESSION: Cardiomegaly and pulmonary vascular redistribution suggesting mild congestive change Aortic calcification and ectasia and unfolding Osteopenia Reviewed, dictated and finalized at location B. 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
== END ==
PROVIDERS: PCP Family Medicine; Visit Provider Nurse Practitioner Gerontology
DX: I50.9 Heart failure, unspecified (principal); R06.02 Shortness of breath; R53.83 Other fatigue; M85.88 Other specified disorders of bone density and structure, other site
CPT/HCPCS: 71046

== ENCOUNTER 2023-07-17 00:56 | Day surgery (SDC) | payer OTHER, SELFPAY ==
[2023-07-10 13:55] VITALS: BMI 34.1
[2023-07-17 08:06] VITALS: BP 118/57; PULSE 79; RESP 18; TEMP 36.2; O2SAT 98
[2023-07-17] MEDS: LACTATED RINGERS 1,000 ML 150 ML IV CONT (08:46)
--- NOTE | 2023-07-17 08:57 | WPDANESEPPF ---
Anes - Initial Pre Proc Eval Procedure: Operation Date: 07/17/23 09:30 Proposed Procedures p Colonoscopy - Rahul Manzanares MD Date/Time: 07/17/23 08:57 Surgeon: Rahul Manzanares MD Pre Op Diagnosis: other fecal abnormalities (+cologuard) Patient Data Age: 82 Gender: F Height: 1.61 m Weight: 88.8 kg Last Vital Signs Temp 97.1 F L 07/17/23 08:06 Pulse 79 07/17/23 08:06 Resp 18 07/17/23 08:06 BP 118/57 L 07/17/23 08:06 Pulse Ox 98 07/17/23 08:06 O2 Del Method Room Air 07/17/23 08:06 Allergies Allergy/AdvReac Type Severity Reaction Status Date / Time heparin Allergy Severe Swelling Verified 07/17/23 08:05 Heparin Analogues Allergy Severe Swelling Verified 07/17/23 08:05 mold Allergy Intermediate Wheezing Verified 07/17/23 08:05 Home Medications Medication Instructions Recorded Confirmed Type rivaroxaban 15 mg tablet (Xarelto) See Rx Instructions .Route 09/24/22 07/17/23 Rx .COMPLEX #90 tabs furosemide 20 mg tablet 40 mg PO QAM #180 tabs 03/05/23 07/10/23 Rx metoprolol succinate 25 mg See Rx Instructions .Route 03/05/23 07/17/23 Rx tablet,extended release 24 hr .COMPLEX #90 tabs pantoprazole 40 mg tablet,delayed 40 mg PO DAILY #90 tabs 03/05/23 07/10/23 Rx release spironolactone 25 mg tablet See Rx Instructions .Route 03/05/23 07/10/23 Rx .COMPLEX #90 tabs calcium carbonate 600 mg-vitamin 1 tablet PO DAILY 07/10/23 07/10/23 History D3 10 mcg (400 unit) tablet (Calcium 600 + D(3)) Patient hx anesthesia problems: none Family hx anesthesia problems: none Results Review: All pre-operative results and documents have been reviewed as part of the pre-operative evaluation. [facility] Past Medical History Medical History Acute on chronic blood loss anemia Anemia Atherosclerosis of abdominal aorta Atrial fibrillation Borderline diabetes Chronic diastolic congestive heart failure Echocardiogram February 2019: Normal left ventricular systolic function with EF of 60-65%, diastolic dysfunction with increased left heart filling pressures with E/E'of 15, atrial fibrillation, moderate left atrial enlargement, mild right atrial enlargement, small pericardial effusion. Compression fracture of L4 vertebra Descending aortic aneurysm (04/07/17) Diverticulosis Colonoscopy performed by Dr. Diaz March 2016. Esophageal stricture With history of dilatation. 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 Status post cataract extraction of both eyes with insertion of intraocular lens Family History Family History Mother Family history of arthritis Social History Social History Social History: The patient is and lives in her own home in [place]. She is a lifelong nonsmoker. No alcohol or illicit substance use. She designates her daughter Marleni Carrillo as her surrogate decision maker and she wishes to be a full code. Smoking status: Never smoker Second hand tobacco smoke exposure: No Alcohol intake: current Alcohol use details: Occasionally Substance use: never Substance use type: does not use Living arrangements: with family Occupation/Education: retired Gender identity (if verbalized by the patient): Female Sexual Orientation (if Verbalized by the Patient):
--- NOTE | 2023-07-17 09:13 | PM.HPGS ---
History of Present Illness History of Present Illness Consent: Risks, benefits, and alternatives have been discussed and questions answered. Patient agrees to proceed with procedure. Chief complaint: other fecal abnormalities (+cologuard) Narrative: Nathaly Narayan is a 82 year old female here for + cologuard, last colonoscopy about 6-7 years ago Review of Systems Constitutional: Constitutional: Denies headache(s) and Denies weakness Eyes: Eyes: Denies blurry vision ENT: Reports Normal hearing present, Denies headache(s) and Denies neck pain Cardiovascular: Cardiovascular: Denies chest pain and Denies dyspnea Respiratory: Respiratory: Denies dyspnea Gastrointestinal: Gastrointestinal: Reports no additional gastrointestinal complaints Genitourinary: Genitourinary: Denies dysuria Musculoskeletal: Musculoskeletal: Denies neck pain Integumentary/Breasts: Skin/Breast: Denies dry skin Neurologic: Reports Normal hearing present, Denies headache(s) and Denies weakness Psychiatric: Psychiatric: Denies anxiety Endocrine: Endocrine: Denies change in body appearance Hematologic/Lymphatic: Hematologic/Lymphatic: Denies easy bleeding Allergic/Immunologic: Allergic/Immunologic: Denies urticaria [facility] Past Medical History Medical History (Updated 07/17/23 @ 09:13 by Rahul Manzanares MD) Acute on chronic blood loss anemia Anemia Atherosclerosis of abdominal aorta Atrial fibrillation Borderline diabetes Chronic diastolic congestive heart failure Echocardiogram February 2019: Normal left ventricular systolic function with EF of 60-65%, diastolic dysfunction with increased left heart filling pressures with E/E'of 15, atrial fibrillation, moderate left atrial enlargement, mild right atrial enlargement, small pericardial effusion. Compression fracture of L4 vertebra Descending aortic aneurysm (04/07/17) Diverticulosis Colonoscopy performed by Dr. Diaz March 2016. Esophageal stricture With history of dilatation. 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 Status post cataract extraction of both eyes with insertion of intraocular lens Family History Family History Mother Family history of arthritis Social History Social History Social History: The patient is and lives in her own home in [place]. She is a lifelong nonsmoker. No alcohol or illicit substance use. She designates her daughter Marleni Carrillo as her surrogate decision maker and she wishes to be a full code. Smoking status: Never smoker Second hand tobacco smoke exposure: No Alcohol intake: current Alcohol use details: Occasionally Substance use: never Substance use type: does not use Living arrangements: with family Occupation/Education: retired Gender identity (if verbalized by the patient): Female Sexual Orientation (if Verbalized by the Patient): Straight or Heterosexual Spiritual care concerns: No Meds Home Medications and Allergies Home Medications Medication Instructions Recorded Confirmed Type rivaroxaban 15 mg tablet (Xarelto) See Rx Instructions .Route 09/24/22 07/17/23 Rx .COMPLEX #90 tabs furosemide 20 mg tablet 40 mg PO QAM #180 tabs 03/05/23 07/10/23 Rx metoprolol succinate 25 mg See Rx Instructions .Route 03/05/23 0
[2023-07-17 09:53] VITALS: BP 130/72; PULSE 68; RESP 20; O2SAT 100
[2023-07-17 10:03] VITALS: BP 109/46; PULSE 71; RESP 20; O2SAT 100
[2023-07-17 10:13] VITALS: BP 132/56; PULSE 71; RESP 22; O2SAT 100
== END 2023-07-17 10:37 | disposition home or self-care (01) ==
PROVIDERS: PCP Family Medicine; Visit Provider Internal Medicine Gastroenterology
PROC: 0DJD8ZZ Inspection of Lower Intestinal Tract, Via Natural or Artificial Opening Endoscopic (ICD-10-PCS; CPT 45378; principal; 2023-07-17 09:30)
DX: R19.5 Other fecal abnormalities (principal); D12.2 Benign neoplasm of ascending colon; D12.0 Benign neoplasm of cecum; K57.30 Diverticulosis of large intestine without perforation or abscess without bleeding; K64.8 Other hemorrhoids; K64.4 Residual hemorrhoidal skin tags; D64.9 Anemia, unspecified; I11.0 Hypertensive heart disease with heart failure; I50.32 Chronic diastolic (congestive) heart failure; R73.03 Prediabetes; K21.9 Gastro-esophageal reflux disease without esophagitis; I48.0 Paroxysmal atrial fibrillation; I73.9 Peripheral vascular disease, unspecified; H35.033 Hypertensive retinopathy, bilateral; Z87.11 Personal history of peptic ulcer disease; Z79.01 Long term (current) use of anticoagulants
CPT/HCPCS: 45381; 45385; 88305; J2371; J2704; J7120

== ENCOUNTER 2023-09-29 08:37 | Emergency (ER) | payer OTHER, SELFPAY ==
--- NOTE | 2023-09-29 08:52 | ED.SKABFB ---
HPI - Skin/Abscess/Foreign Bdy General Chief complaint: Skin/Abscess/Foreign Body Stated complaint: knot on right leg,painful Time Seen by Provider: 09/29/23 08:52 Source: patient Mode of arrival: ambulatory Limitations: no limitations History of Present Illness HPI narrative: 82 yo F with hx of afib, CHF presents with c/o painful lump to R lower leg for 4 days. Unsure of injury. States that she has been doing alot of cleanign and putting on xmas decorations and may have bumped it. Takes xarelto. noticed redness to right lower extremity 2 days ago, pain getting progressively worse. Afebrile. Ambulatory with steady gait. All systems reviewed and negative except as noted above. Related Data Home Medications Medication Instructions Recorded Confirmed calcium carbonate 600 mg-vitamin 1 tablet PO DAILY 07/10/23 09/29/23 D3 10 mcg (400 unit) tablet (Calcium 600 + D(3)) Allergies Allergy/AdvReac Type Severity Reaction Status Date / Time heparin Allergy Severe Swelling Verified 09/29/23 08:46 Heparin Analogues Allergy Severe Swelling Verified 09/29/23 08:46 mold Allergy Intermediate Wheezing Verified 09/29/23 08:46 Review of Systems Review of Systems: CONSTITUTIONAL: Denies fever, chills, or sweats. EYES: Denies visual changes, redness, or discharge. ENT: Denies rhinorrhea, congestion, sore throat, or otalgia. CARDIOVASCULAR: Denies chest pain, palpitations, or edema. RESPIRATORY: Denies cough or dyspnea. GASTROINTESTINAL: Denies abdominal pain, nausea, vomiting, or diarrhea. GENITOURINARY: Denies dysuria or hematuria. SKIN: Reports painful lump to right anterior lower extremity with redness and warmth. MUSCULOSKELETAL: Denies back pain, joint pain, or myalgia. NEUROLOGIC: Denies headache, numbness, or weakness. PSYCHIATRIC: Denies anxiety or depression. All other systems reviewed are negative, except as documented in HPI. [facility] Past Medical History Medical History (Updated 09/29/23 @ 09:06 by Aggie Wright NP) Acute on chronic blood loss anemia Anemia Atherosclerosis of abdominal aorta Atrial fibrillation Borderline diabetes Chronic diastolic congestive heart failure Echocardiogram February 2019: Normal left ventricular systolic function with EF of 60-65%, diastolic dysfunction with increased left heart filling pressures with E/E'of 15, atrial fibrillation, moderate left atrial enlargement, mild right atrial enlargement, small pericardial effusion. Compression fracture of L4 vertebra Descending aortic aneurysm (04/07/17) Diverticulosis Colonoscopy performed by Dr. Diaz March 2016. Esophageal stricture With history of dilatation. 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 Status post cataract extraction of both eyes with insertion of intraocular lens Family History Family History Mother Family history of arthritis Social History Social History Social History: The patient is and lives in her own home in [place]. She is a lifelong nonsmoker. No alcohol or illicit substance use. She designates her daughter Marleni Carrillo as her surrogate decision maker and she wishes to be a full code. Smoking status: Never smoker Second hand tobacco smoke exposure: No Alcohol intake: current Alcohol use details: Occ
[2023-09-29 08:55] VITALS: BP 156/92; PULSE 79; RESP 16; TEMP 36.7; O2SAT 98
== END 2023-09-29 09:12 | disposition home or self-care (01) ==
PROVIDERS: Emergency Provider Nurse Practitioner Family; PCP Family Medicine
DX: S80.11XA Contusion of right lower leg, initial encounter (principal); X58.XXXA Exposure to other specified factors, initial encounter; L03.115 Cellulitis of right lower limb; R73.03 Prediabetes; I11.0 Hypertensive heart disease with heart failure; I50.32 Chronic diastolic (congestive) heart failure; K21.9 Gastro-esophageal reflux disease without esophagitis; H35.033 Hypertensive retinopathy, bilateral; M85.80 Other specified disorders of bone density and structure, unspecified site; I48.0 Paroxysmal atrial fibrillation; I73.9 Peripheral vascular disease, unspecified; Z96.653 Presence of artificial knee joint, bilateral; Z98.42 Cataract extraction status, left eye; Z98.41 Cataract extraction status, right eye; Z96.1 Presence of intraocular lens
CPT/HCPCS: 99213; G0463

== ENCOUNTER 2023-10-08 10:49 | Outpatient (CLI) | payer OTHER, SELFPAY ==
--- NOTE | ~2023-10-08 | US_ITS ---
EXAMINATION: US soft tissue LE RT DATE: 10/08/2023 11:39 INDICATION: Right lower leg lump. TECHNIQUE: Multiple grayscale and Doppler ultrasound images of the right lower limb were obtained. COMPARISON: None FINDINGS: There is a 5.9 x 3.8 x 1.2 cm hypoechoic subcutaneous mass in the anterior right lower leg without internal vascular flow, likely a hematoma. IMPRESSION: 1. 5.9 cm subcutaneous mass in anterior right lower leg, likely a hematoma. Reviewed, dictated and finalized at location A. 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
== END 2023-10-08 10:50 | disposition home or self-care (01) ==
PROVIDERS: PCP Family Medicine; Visit Provider Family Medicine
DX: R22.41 Localized swelling, mass and lump, right lower limb (principal)
CPT/HCPCS: 76882

== ENCOUNTER 2024-09-08 11:43 | Outpatient (CLI) | payer OTHER, SELFPAY ==
--- NOTE | ~2024-09-08 | XR_ITS ---
EXAMINATION: XR chest 2V DATE: 09/08/2024 12:23 INDICATION: Heart failure. Shortness of breath. TECHNIQUE: PA and lateral views of the chest were obtained. COMPARISON: Chest radiograph dated 09/24/2022 FINDINGS: Persistent opacities at the bilateral lung bases primarily related to bilateral anterior pericardial fat pads along with mild bibasilar atelectasis versus less likely minimal pulmonary edema, pleural ef fusion or pneumothorax. Borderline heart size accounting for AP technique. Tortuous and atherosclerot ic thoracic aorta. Moderate hiatal hernia. Cholecystectomy clips in right upper quadrant. IMPRESSION: 1. Mild bibasilar atelectasis versus less likely minimal pulmonary edema. 2. Borderline heart size accounting for AP technique. 3. Moderate-sized hiatal hernia. Reviewed, dictated and finalized at location B. ATE DUTY LPN
[2024-09-08 12:32] LABS: Basophils Absolute Auto 0.1 K/mm3 (0.0-0.1); Basophils Percent Auto 0.7 % (0.2-1.2); Eosinophils Absolute Auto 0.2 K/mm3 (0-0.3); Eosinophils Percent Auto 1.8 % (0-4.4); Hematocrit 42.7 % (37.0-47.0); Hemoglobin 13.4 g/dL (12.0-15.0); Immature Granulocyte Absolute 0.03 K/mm3 (0.00-0.031); Immature Granulocyte Percent A 0.4 % (0-0.5); Lymphocytes Absolute Auto 0.85 K/mm3 (0.9-3.2); Lymphocytes Percent Auto 10.3 % (18.3-44.2); Mean Corpuscular HGB Conc 31.4 g/dl (32-36); Mean Corpuscular Hemoglobin 29.1 pg (26-34); Mean Corpuscular Volume 92.8 fl (80-100); Mean Platelet Volume 10.6 fl (7.4-10.4); Monocytes Absolute Auto 0.8 K/mm3 (0.1-0.6); Monocytes Percent Auto 9.7 % (2.6-8.5); Neutrophils Absolute Auto 6.4 K/mm3 (1.3-6.7); Neutrophils Percent Auto 77.1 % (45.5-73.1); Platelet Count Result 254 k/mm3 (150-375); Red Cell Distribution Width 13.1 % (11.5-14.5); White Blood Count 8.3 K/mm3 (4.5-10.0)
[2024-09-08 12:38] LABS: Alanine Aminotransferase 13 U/L (6-35); Albumin Level 4.2 g/dL (3.5-5.1); Alkaline Phosphatase 87 U/L (38-126); Anion Gap 6 mmol/L (4-12); Aspartate Amino Transferase 21 U/L (14-36); Bilirubin,Total 1.2 mg/dL (0.2-1.3); Blood Urea Nitrogen 32 mg/dL (7-17); Calcium 9.1 mg/dL (8.4-10.2); Carbon Dioxide 29 mmol/L (22-30); Chloride 104 mmol/L (98-107); Estimated Glomerular Filt Rate 39; Glucose 101 mg/dL (65-110); Potassium 4.3 mmol/L (3.4-5.0); Sodium 139 mmol/L (137-145)
[2024-09-08 12:46] LABS: NT Pro B Type Natriuretic Pept 2760 pg/mL (19.9-100)
== END 2024-09-08 11:44 | disposition home or self-care (01) ==
PROVIDERS: PCP Family Medicine; Visit Provider Internal Medicine
DX: I50.9 Heart failure, unspecified (principal); K44.9 Diaphragmatic hernia without obstruction or gangrene
CPT/HCPCS: 36415; 71046; 80053; 83880; 85025

== ENCOUNTER 2024-10-14 13:38 | Outpatient (CLI) | payer OTHER, SELFPAY ==
[2024-10-14 14:43] LABS: Anion Gap 3 mmol/L (4-12); Blood Urea Nitrogen 33 mg/dL (7-17); Calcium 9.2 mg/dL (8.4-10.2); Carbon Dioxide 33 mmol/L (22-30); Chloride 101 mmol/L (98-107); Estimated Glomerular Filt Rate 36; Glucose 115 mg/dL (65-110); Potassium 3.6 mmol/L (3.4-5.0); Sodium 137 mmol/L (137-145)
== END 2024-10-14 13:39 | disposition home or self-care (01) ==
PROVIDERS: PCP Family Medicine; Visit Provider Internal Medicine
DX: I50.32 Chronic diastolic (congestive) heart failure (principal)
CPT/HCPCS: 36415; 80048

== ENCOUNTER 2024-11-17 11:11 | Outpatient (CLI) | payer OTHER, SELFPAY ==
[2024-11-17 12:17] LABS: Alanine Aminotransferase 10 U/L (6-35); Albumin Level 3.8 g/dL (3.5-5.1); Alkaline Phosphatase 81 U/L (38-126); Anion Gap 9 mmol/L (4-12); Aspartate Amino Transferase 18 U/L (14-36); Blood Urea Nitrogen 39 mg/dL (7-17); Calcium 8.7 mg/dL (8.4-10.2); Carbon Dioxide 30 mmol/L (22-30); Chloride 101 mmol/L (98-107); Estimated Glomerular Filt Rate 43; Glucose 93 mg/dL (65-110); Potassium 4.1 mmol/L (3.4-5.0); Sodium 140 mmol/L (137-145)
[2024-11-17 12:21] LABS: NT Pro B Type Natriuretic Pept 1750 pg/mL (19.9-100)
--- OUTSIDE RECORDS SUMMARY | 2024-11-19 17:46 | XMS_ITS | Clinical Summary ---
Author Organization [facility] Address [address] [place] [address]. [place] [address] Care Team Providers Care Airport Operations Specialist Name Role Phone Unavailable Primary Care Provider Unavailabl e Social History Tobacco Use Types Packs/Day Years Used Date Smoking Tobacco: Never Assessed Comments Unknown Sex and Gender Information Value Date Recorded Sex Assigned at Not on file Legal Sex Female 7:43 PM CDT Gender Identity Not on file Sexual Orientation Not on file Plan of Treatment Health Maintenance Due Date Last Done Comments DTaP, Tdap and Td Vaccines ( 1 - Tdap) 1957 Zoster Vaccines (1 of 2) 1988 Pneumococcal Vaccine: 65+ Ye ars (1 of 1 - PCV) 2003 RSV Immunization or 60+ Years (1 - 1-dose 75+ series) 2013 COVID-19 Vaccine ( - 2023-2 5 season) 2024 Influenza Adult (#1) 2024 Meningococcal Vaccine Aged Out No li margo eligible based on patient's age to complete this topic RSV Immunizations Under 20 Months Aged Out No longer eligible based on patient's age to complete this topic
--- OUTSIDE RECORDS SUMMARY | 2024-11-19 17:46 | XMS_ITS | Clinical Summary ---
Author Organization [facility] [address] [place] [address] [address] [place] [address] Care Team Providers Care Structural Steel Worker Name Role Phone Solomon Calvert MD Primary Care Provider Allergies Active Allergy Reactions Criticality Noted Date Comments Cephalexin Unknown 09/08/2024 Heparin Swelling High 01/16/2016 Medications Xarelto 15 mg tablet Take 1 tablet (15 mg total) by mouth daily with dinner Active spironolactone (ALDACTONE) 25 mg tablet Take 1 tablet (25 mg total) by mouth daily Active pantoprazole DR (PROTONIX) 40 mg EC tablet Take 1 tablet (40 mg total) by mouth daily Active metoprolol XL (TOPROL-XL) 25 mg extended release tablet Take 1 tablet (25 mg total) by mouth daily Active calcium carbonate-vitami n D3 (Calcium 600 + D,3,) 1500 mg (600 mg elemental) -400 units per tablet Take 1 tablet by mouth daily Active furosemide (LASIX) 40 mg tablet Take 1 tablet (40 mg total) by mouth daily 90 tablet 3 09/17/2024 5 Active dapagliflozin propanediol (FARXIGA) 10 mg tablet Take 1 tablet (10 mg total) by mouth daily 90 tablet 3 09/17/2024 5 Active Active Problems Problem Noted Date Diagnosed Date 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 (CMS/HCC) 09/17/2024 Longstanding persistent atrial fibrillation (CMS /HCC) 09/17/2024 Chronic diastolic heart failure 09/17/2024 Encounters Date Type Department Care Team Description 11/17/2024 10:45 AM ASSISTANT PROFESSOR OF SURGERY Office Visit [facility] Cardiology [address] [facility] [address] [place] [address] Jaspal Handy MD Chronic diastolic heart failure (HCC) (Primary Dx) 11/11/2024 Telephone [facility] Cardiology [address] [place] [address] [address] [place] [address] Jaspal Handy MD 10/08/2024 1:30 PM ASSISTANT PROFESSOR OF SURGERY Office Visit [facility] Cardiology [address] [place] [address] [place] [phone] Jaspal Handy MD Chronic diastolic heart failure (HCC) (Primary Dx); Heart failure, unspecified (CMS/HCC) (HCC) 09/17/2024 10:45 AM ASSISTANT PROFESSOR OF SURGERY Office Visit [facility] Cardiology [address] [place] [address] [place] [phone] Jaspal Handy MD Chronic diastolic heart failure (HCC) (Primary Dx); Longstanding persistent atrial fibrillation (CMS/HCC) (HCC); 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 (CMS/HCC) (HCC) 09/16/2024 Telephone [facility] Cardiology [address] [place] [address] [place] [phone] Jaspal Handy MD 09/10/2024 10:00 AM ASSISTANT PROFESSOR OF SURGERY Ancillary Procedure [facility] Vascular and Vein Surgery at [address] [place] [address] 09/09/2024 9:15 AM ASSISTANT PROFESSOR OF SURGERY Ancillary Procedure [facility] Cardiology [address] [place] [address] [place] [phone] Heart failure, unspecified (CMS/HCC) (HCC) 09/08/2024 10:45 AM ASSISTANT PROFESSOR OF SURGERY Office Visit [facility] Cardiology [address] [place] [address] [place] [phone] Jaspal Handy MD Swelling of both lower extremities (Primary Dx); Heart failure, unspecified (CMS/HCC) (HCC); Atrial fibrillation, unspecified type (HCC) from Last 3 Months Medical History Medical History Date Comments Atrial fibrillation (CMS/HCC) (HCC) CHF (congestive heart failure) (CMS/HCC) (HCC) Social History Tobacco Use Types Packs/Day Years Used Date Smoking Tobacco: Never Smokeless Tobacco: Never Tobacco Cessation:Counseling Given: Not Answered Comments Unknown Sex and Gender Information Value Date Recorded Sex Assigned at Not on file Legal Sex Female 2:21 PM ASSISTANT PROFESSOR OF SURGERY Gender Identity Not on file Sexual Orientation Not on file Obstetrics History Last Filed Vital Signs Vital Sign Reading Time Taken Comments Blood Pressure 124/62 11/17/2024 10:46 AM ASSISTANT PROFESSOR OF SURGERY Pulse 82 11/17/2024 10:46 AM ASSISTANT PROFESSOR OF SURGERY Temperature - - Respiratory Rate - - Oxygen Saturation 99% 11/17/2024 10:46 AM ASSISTANT PROFESSOR OF SURGERY Inhaled Oxygen Concentration - - Weight 88.5 kg (195 lb) 11/17/2024 10:46 AM ASSISTANT PROFESSOR OF SURGERY Height 160 cm (5' 3 ) 11/17/2024 10:46 AM ASSISTANT PROFESSOR OF SURGERY Body Mass Index 34.54 11/17/2024 10:46 AM ASSISTANT PROFESSOR OF SURGERY Plan of Treatment Health Maintenance Due Date Last Done Comments Depression Screening 1940 Fall Risk Assessment 1940 Osteoporosis Screening-Bone Density Scan 1940 Hepatitis B Screening 1958 Well Visit 65+ 2003 Zoster Vaccine (2 of 3) 10/24/2015 08/29/2015 Covid-19 Vaccine (4 - 2023-2 5 season) 2024 08/19/2021, 01/15/2021, 12/23/2020 DTaP/Tdap/Td Vaccine (2 - Td or Tdap) 11/30/2032 11/30/2022 Pneumococcal vaccine 65+ Completed 11/30/2022 Influenza Vaccine Completed 08/25/2024, , 07/16/2022, Additional history exists Procedures Procedure Name Priority Date/Time Associated Diagnosis Comments ECG 12-LEAD Routine 11/17/2024 1:20 PM ASSISTANT PROFESSOR OF SURGERY Atrial fibrillation, unspecified type (HCC) US VEIN DUPLEX LOWER EXTREMITY BILATERAL COMPLETE Routine 09/10/2024 10:31 AM ASSISTANT PROFESSOR OF SURGERY Swelling of both lower extremities TRANSTHORACIC ECHO (TTE) COMPLETE W DOPPLER/CF WO CONTRAST Routine 09/09/2024 10:21 AM ASSISTANT PROFESSOR OF SURGERY Heart failure, unspecified (CMS/HCC) (HCC) ELECTROCARDIOGRAM REPORT Routine 024 1:36 PM ASSISTANT PROFESSOR OF SURGERY Atrial fibrillation, unspecified type (HCC) XR CHEST PA LATERAL 2 VIEWS Routine 09/08/2024 Heart failure, unspecified (CMS/HCC) (HCC) from Last 3 Months Results * ECG 12 lead (11/17/2024 1:20 PM ASSISTANT PROFESSOR OF SURGERY) us Jaspal Handy MD ECG ORDERABLES Final Result * US Vein Duplex Lower Extremity Bilateral Complete (09/10/2024 10:31 AM ASSISTANT PROFESSOR OF SURGERY) Anatomical Region Laterality Modality Vascular Bilateral Ultrasound 09/10/2024 9:57 AM ASSISTANT PROFESSOR OF SURGERY Narrative 09/15/2024 4:26 PM ASSISTANT PROFESSOR OF SURGERY Vascular & Vein Surgery [address] [place] [id number] Lower Extremity Venous Report Patient Name: RIMMA NARAYAN L ?? : 1940 (83y 9m) ??Gender: F Study Date: 09-10-2024 09:57:52 AM Buckler And Lacer: DIDI ??Location: [facility] Order Provider: JASPAL HANDY Quality: Adequate Ref Provider: JASPAL HANDY ?? PROCEDURES: Vascular Report: A non-invasive vascular imaging study of the bilateral lower extremity veins was performed using B-mode ultrasound, color flow, and spectral Doppler. ?? INDICATIONS: L>R lower extremity swelling, Rt calf pain, mostly at night. ?? HISTORY: Hypertension. Congestive heart failure. Afib. ?? PREVIOUS STUDIES: No previous studies for comparison. ?? FINDINGS: Right: Negative for deep and superficial vein thrombosis in the right lower extremity. Pulsatile flow noted in the common femoral vein. Left: Negative for deep and superficial vein thrombosis in the left lower extremity. Pulsatile flow noted in the common femoral vein. ?? CONCLUSIONS: 1. Bilateral lower extremities are negative for deep or superficial venous thrombosis. ?? ATTESTATION: I have reviewed and interpreted the pertinent images and measurements of this study. I attest to the conclusions in the final report that is provided above. Electronically Signed By: Nikko Foster MD [facility] 2024-09-15 16:25:56 ASSISTANT PROFESSOR OF SURGERY Procedure Note Nikko Foster MD - 09/15/2024 Vascular & Vein Surgery [address] [place] [address] Lower Extremity Venous Report Patient Name: RIMMA NARAYAN L : 1940 (83y 9m) Gender: F Study Date: 09-10-2024 09:57:52 AM Buckler And Lacer: DIDI Location: [facility] Order Provider: JASPAL HANDY Quality: Adequate Ref Provider: JASPAL HANDY PROCEDURES: Vascular Report: A non-invasive vascular imaging study of the bilaterallower extremity veins was performed using B-mode ultrasound, color flow, and spectralDoppler. INDICATIONS: L>R lower extremity swelling, Rt calf pain, mostly at night. HISTORY: Hypertension. Congestive heart failure. Afib. PREVIOUS STUDIES: No previous studies for comparison. FINDINGS: Right: Negative for deep and superficial vein thrombosis in the rightlower extremity. Pulsatile flow noted in the common femoral vein. Left: Negative for deep and superficial vein thrombosis in the left lowerextremity. Pulsatile flow noted in the common femoral vein. CONCLUSIONS: 1. Bilateral lower extremities are negative for deep or superficial venousthrombosis. ATTESTATION: I have reviewed and interpreted the pertinent images and measurements ofthis study. I attest to the conclusions in the final report that is provided above. Electronically Signed By: Nikko Foster MD [facility] 2024-09-15 16:25:56 ASSISTANT PROFESSOR OF SURGERY us Jaspal Handy MD IMG US PROCEDURES Final Result * TRANSTHORACIC ECHO (TTE) COMPLETE W DOPPLER/CF WO CONTRAST (09/09/2024 10:21 AM ASSISTANT PROFESSOR OF SURGERY) Anatomical Region Laterality Modality Ultrasound 09/09/2024 9:55 AM ASSISTANT PROFESSOR OF SURGERY Narrative 09/09/2024 3:00 PM ASSISTANT PROFESSOR OF SURGERY [facility] Cardiology [address] [facility] [address] [id number] [address] [facility] [address] [address] P:[phone] P:[phone] Echocardiographic Report Patient Name: RIMMA NARAYAN L : 1940 Study Date: 09/09/2024 9:55:43 AM Gender: F Tech: Location: [facility] Provider: JASPAL HANDY ?Height(Cm): 163 BSA: 2.04 Weight(Kg): 92.1 Heart Rate: 87 BP: 123 / 91 Quality: Good Order Provider: JASPAL HANDY PROCEDURES: Echocardiographic Report: Transthoracic echocardiogram with complete 2D, M-Mode, and color Doppler examination. With Strain Analysis. INDICATIONS: I50.9 Heart failure, unspecified. Measurements: 2D/M Mode ?Doppler Measurement ?Value ?Normal Range ?Measurement ?Value ?Normal Range LVIDd 2D ? 4.12 ? [ 3.80 - 5.20 ] cm ?DEON Vmax ? 2.07 ? [ 2.00 - 4.00 ] cm2 LVIDs 2D ? 3.03 ? [ 2.20 - 3.50 ] cm ?AV Mean PG ? 4 ?mmHg LVPWd 2D ? 1.03 ? [ 0.60 - 0.90 ] cm ?AV Peak Jeff ?1.39 ? [ 1.00 - 1.70 ] m/s IVSd 2D ?1.03 ? [ 0.60 - 0.90 ] cm ?AV Peak PG ? 8 ?mmHg LA Volume Index ?41 ? [ 16 - 34 ] cc/m2 ? AV VTI ? 32.54 ?cm LVOT Diam ?1.90 ?[ 1.70 - 2.10 ] cm LVOT Peak Jeff ?1.01 ?[ 0.70 - 1.10 ] m/s LVOT VTI ? 21.72 ? cm MV E Peak Jeff ?1.44 ?[ 0.60 - 1.30 ] m/s MV A Peak Jeff ?0.96 ?[ 1.00 - 1.20 ] m/s MV Decel Time ?136 ? [ 104 - 258 ] msec TR Peak Jeff ?3.47 ?[ 1.00 - 2.80 ] m/s TR Peak PG ? 48 ?mmHg Lateral E` ? 0.08 ?[ 0.10 - 0.15 ] m/s E` ? 0.08 ?m/s E/E` ? 19 Measurement ?Value ?Normal Range ?Measurement ?Value ?Normal Range 2D/M Mode ?Doppler - FINDINGS: Interpretation Site: Exam was interpreted at [facility]. Left Ventricle: Normal left ventricular size. Mild concentric left ventricular hypertrophy. Normal global left ventricular systolic function. Diastolic dysfunction is present. Increased left heart filling pressures based on elevated E/E`. Ejection fraction is visually estimated at 50-55 %. Right Ventricle: Mild enlargement of right ventricle. Mild right ventricular hypokinesis. Left Atrium: There is mild enlargement of left atrium. Right Atrium: There is mild enlargement of right atrium. Atrial Septum: Normal atrial septum. Mitral Valve: Mitral valve leaflets appear mildly thickened. Mild mitral annular calcification. Mild mitral valve regurgitation. Aortic Valve: Aortic valve not well visualized. Mild aortic stenosis. Valve area of 2.1 cm2. Aortic cusps appear mildly sclerotic. Tricuspid Valve: Normal appearance of the tricuspid valve. Moderate pulmonary hypertension based on right ventricular systolic pressure. Estimated peak RVSP is 58 mmHg. Moderate tricuspid regurgitation. Pulmonic Valve: Normal appearance of the pulmonic valve. Pericardium: Trivial pericardial effusion. There is an anterior echo free space consistent with epicardial fat pad. Aorta: Normal aortic root. IVC: Dilated IVC with respiratory collapse consistent with elevated right atrial pressure (10-15 mmHg). CONCLUSIONS: Normal left ventricular size. Mild left ventricular hypertrophy. Normal global left ventricular systolic function with a variable contractility due to atrial fibrillation. Diastolic dysfunction is present. Increased left heart filling pressures based on elevated E/E`. Ejection fraction approximately 50-55 %. Mild RV enlargement with mild hypokinesis. Mild biatrial enlargement. Mitral valve leaflets appear mildly thickened. Mild mitral annular calcification. Mild mitral valve regurgitation. Aortic valve not well visualized, appears mildly sclerotic. Mild aortic stenosis. Valve area of 2.1 cm2. Moderate pulmonary hypertension, estimated RVSP 58 mmHg. Moderate tricuspid regurgitation. Trivial pericardial effusion. Atrial fibrillation. Electronically Signed By: Austen Salgado MD, [facility] 2024-09-09 14:59:59 ASSISTANT PROFESSOR OF SURGERY Procedure Note Austen Salgado MD - 09/09/2024 [facility] Cardiology [address] [facility] [address], [place] [address] [id number], [place] [address] P:[phone] P:[phone] Echocardiographic Report Patient Name: RIMMA NARAYANHarpal : 1940 Study Date: 09/09/2024 9:55:43 AM Gender: F Tech: Location: [place] Ref Provider: JASPAL HANDY Height(Cm): 163 BSA: 2.04 Weight(Kg): 92.1 Heart Rate: 87 BP: 123 / 91 Quality: Good Order Provider: JASPAL HANDY PROCEDURES: Echocardiographic Report: Transthoracic echocardiogram with complete 2D, M-Mode, and color Dopplerexamination. With Strain Analysis. INDICATIONS: I50.9 Heart failure, unspecified. Measurements: 2D/M ModeDoppler Measurement Value Normal Range MeasurementValue Normal Range LVIDd 2D 4.12 [ 3.80 - 5.20 ] cm DEON Vmax2.07 [ 2.00 - 4.00 ] cm2 LVIDs 2D 3.03 [ 2.20 - 3.50 ] cm AV Mean PG4 mmHg LVPWd 2D 1.03 [ 0.60 - 0.90 ] cm AV Peak Vel1.39 [ 1.00 - 1.70 ] m/s IVSd 2D 1.03 [ 0.60 - 0.90 ] cm AV Peak PG8 mmHg LA Volume Index 41 [ 16 - 34 ] cc/m2 AV VTI32.54 cm LVOT Diam 1.90 [ 1.70 - 2.10 ] cm LVOT Peak Jeff 1.01 [ 0.70 - 1.10 ] m/s LVOT VTI 21.72 cm MV E Peak Jeff 1.44 [ 0.60 - 1.30 ] m/s MV A Peak Jeff 0.96 [ 1.00 - 1.20 ] m/s MV Decel Time 136 [ 104 - 258 ] msec TR Peak Jeff 3.47 [ 1.00 - 2.80 ] m/s TR Peak PG 48 mmHg Lateral E` 0.08 [ 0.10 - 0.15 ] m/s E` 0.08 m/s E/E` 19 Measurement Value Normal Range MeasurementValue Normal Range 2D/M ModeDoppler - FINDINGS: Interpretation Site: Exam was interpreted at [facility]. Left Ventricle: Normal left ventricular size. Mild concentric left ventricularhypertrophy. Normal global left ventricular systolic function. Diastolic dysfunction is present.Increased left heart filling pressures based on elevated E/E`. Ejection fraction isvisually estimated at 50-55 %. Right Ventricle: Mild enlargement of right ventricle. Mild right ventricular hypokinesis. Left Atrium: There is mild enlargement of left atrium. Right Atrium: There is mild enlargement of right atrium. Atrial Septum: Normal atrial septum. Mitral Valve: Mitral valve leaflets appear mildly thickened. Mild mitral annularcalcification. Mild mitral valve regurgitation. Aortic Valve: Aortic valve not well visualized. Mild aortic stenosis. Valve area of 2.1cm2. Aortic cusps appear mildly sclerotic. Tricuspid Valve: Normal appearance of the tricuspid valve. Moderate pulmonary hypertensionbased on right ventricular systolic pressure. Estimated peak RVSP is 58 mmHg. Moderatetricuspid regurgitation. Pulmonic Valve: Normal appearance of the pulmonic valve. Pericardium: Trivial pericardial effusion. There is an anterior echo free spaceconsistent with epicardial fat pad. Aorta: Normal aortic root. IVC: Dilated IVC with respiratory collapse consistent with elevated rightatrial pressure (10-15 mmHg). CONCLUSIONS: Normal left ventricular size. Mild left ventricular hypertrophy. Normalglobal left ventricular systolic function with a variable contractility due to atrialfibrillation. Diastolic dysfunction is present. Increased left heart filling pressuresbased on elevated E/E`. Ejection fraction approximately 50-55 %. Mild RV enlargement with mild hypokinesis. Mild biatrial enlargement. Mitral valve leaflets appear mildly thickened. Mild mitral annularcalcification. Mild mitral valve regurgitation. Aortic valve not well visualized, appears mildly sclerotic. Mild aorticstenosis. Valve area of 2.1 cm2. Moderate pulmonary hypertension, estimated RVSP 58 mmHg. Moderatetricuspid regurgitation. Trivial pericardial effusion. Atrial fibrillation. Electronically Signed By: Austen Salgado MD, [facility] 2024-09-09 14:59:59 ASSISTANT PROFESSOR OF SURGERY Result Robin Handy MD CV ECHO PROCEDURES Final Result * Electrocardiogram Report (09/08/2024 1:36 PM ASSISTANT PROFESSOR OF SURGERY) Result Robin Handy MD ECG ORDERABLES Final Result * XR Chest Pa Lateral 2 Views (09/08/2024) Anatomical Region Laterality Modality Body, Chest N/A Radiographic Melania ging Result Robin Handy MD IMG XR PROCEDURES Final Result from Last 3 Months Insurance [facility] Care Teams Structural Steel Worker Relationship Specialty Start Date End Date Solomon Calvert MD [address] [place] [address] PCP - General Family Medicine 11/17/24
--- OUTSIDE RECORDS SUMMARY | 2024-11-19 17:46 | XMS_ITS | Encounter Summary ---
Author Organization [facility] Healthcare Address [address] [place] [id number] Care Team Providers Care Funding Analyst Name Role Phone Solomon Calvert MD Primary Care Provider Reason for Visit * Reason Comments diastolic heart failure Atrial Fibrillation Hypertension Follow up * Consultation (Routine) - Authorized Specialty Diagnoses / Procedures Referred By Contac t Referred To Contact Cardiology Diagnoses Heart failure, unspecified (CMS/HCC) (HCC) Juliana Dior MD [address] [address] Phone: tel: fax: [facility] Medical [facility] Cardiology [address] [place] [phone] Phone: tel: fax: Referral ID Status Reason Start Date Expiration Date Visits Requested Visits Authorized [id number] Authorized Specialty Services Required 4 02/06/2025 4 4 Encounter Details Date Type Department Care Team (Late st Contact Info) Description 11/17/2024 10:45 AM ASSEMBLER PIANO Office Visit [facility] Cardiology [address] [place] [phone] Jaspal Handy MD [address] [place] [id number] Chronic diastolic heart failure (HCC) (Primary Dx) Social History Tobacco Use Types Packs/Day Years Used Date Smoking Tobacco: Never Smokeless Tobacco: Never Comments Unknown Sex and Gender Information Value Date Recorded Sex Assigned at Not on file Legal Sex Female 2:21 PM ASSEMBLER PIANO Gender Identity Not on file Sexual Orientation Not on file documented as of this encounter Last Filed Vital Signs Vital Sign Reading Time Taken Comments Blood Pressure 124/62 11/17/2024 10:46 AM ASSEMBLER PIANO Pulse 82 11/17/2024 10:46 AM ASSEMBLER PIANO Temperature - - Respiratory Rate - - Oxygen Saturation 99% 11/17/2024 10:46 AM ASSEMBLER PIANO Inhaled Oxygen Concentration - - Weight 88.5 kg (195 lb) 11/17/2024 10:46 AM ASSEMBLER PIANO Height 160 cm (5' 3 ) 11/17/2024 10:46 AM ASSEMBLER PIANO Body Mass Index 34.54 11/17/2024 10:46 AM ASSEMBLER PIANO documented in this encounter Progress Notes * Jaspal Handy MD - 11/17/2024 10:45 AM CST [facility] CHIEF COMPLAINT / REASON FOR CONSULT: Follow up for atrial fibrillation and chronic diastolic heartfailure HISTORY: Nathaly Narayan is a 83 y.o. female with chronic diastolic heart failure, persistent atrial fibrillation, and hypertension returns to follow up for her cardiac care. She has been transition from Lasix 40 mg p.o. b.i.d. to 40 mg once daily and has been maintaining her dry weight of 195 lb. States that she continues to make adequate amount of urine. She denies any shortness of breath or orthopnea. She feels that she is back at her baseline in terms of physical exertion. Dry weight 195 lb Exercise Tolerance: Walk up 1 flight of stairs without any significant shortness of breath Social: Family History: Medications: Xarelto 15 mg every evening Lasix 40 mg p.o. daily Toprol 25 mg p.o. daily Spironolactone 25 mg p.o. daily REVIEW OF SYSTEMS: GENERAL: As per HPI CVS: As per HPI HEME: No bruising, no bleeding PHYSICAL EXAMINATION: BP 124/62 (BP Location: Left arm, Patient Position: Sitting) Pulse 82 Ht 160 cm (5' 3 ) Wt 88.5 kg (195 lb) SpO2 99% BMI 34.54 kg/m?? GENERAL: Alert, in no distress HEAD: Normocephalic and atraumatic EYES: Extraocular movement intact ENT: Unremarkable NECK: no jugular venous distention CHEST: Clear to auscultation, no wheezes, rales or rhonchi, symmetric air entry CARDIAC: Regular rate and irregular rhythm, S1 S2 normal, no murmur, rub, heaves, thrills or gallops ABDOMEN: soft, nontender, no bruit EXTREMITIES: + edema bilaterally PERIPHERAL PULSES: Peripheral pulses symmetrical SKIN: Warm and dry NEURO: Alert and oriented x 3 LABS: No results found for: CHOL No results found for: HDL No results found for: LDLCALC No results found for: TRIG No results found for: CHOLHDL No results found for: HGBA1C CARDIAC IMAGING RESULTS REVIEW: Echo 08/2024: mild concentric LVH. Normal left ventricular ejection fraction. The right ventricle is mildly dilated with mild systolic dysfunction. Left atrium is mildly dilated. There is mild aorticstenosis. PASP is [address] Stress Test Cardiac Monitors Cath ASSESSMENT/PLAN: 83 y.o. female with chronic diastolic heart failure, persistent atrial fibrillation, and hypertension returns to follow up for her cardiac care Chronic diastolic heart failure -Her dry weight is estimated to be 195 lb -Continue Lasix 40 mg oral daily and repeat blood work today to monitor renal function, electrolytes, and repeat her proBNP now that she is at dry weight -Continue Farxiga 10 mg p.o. daily and spironolactone 25 mg p.o. daily -We will likely refer to nephrology next visit given her CKD stage IIIB Persistent atrial fibrillation -Continue Xarelto 15 mg every evening which is a lower dose secondary to low GFR -Continue Toprol 25 mg p.o. daily -We will discuss ablation therapy given her heart failure condition however she has been postponingthis discussion Hypertension -Goal systolic blood pressure less than 130 mm Hg -Continue Toprol 25 mg p.o. daily and spironolactone 25 mg p.o. daily Return to clinic in 6 months Jaspal Handy MD MBLER PIANO documented in this encounter Plan of Treatment Scheduled Orders Name Type Priority Associated Diagnoses Orde r Schedule Comprehensive metabolic panel Lab Routine Chronic diastolic heart failure (HCC) Expected: 11/17/2024, Expires: 12/18/2024 Pro B-type natriuretic peptide Lab Routine Chronic diastolic heart failure (HCC) Expected: 11/20/2024, Expires: 11/17/2025 documented as of this encounter Visit Diagnoses Diagnosis Chronic diastolic heart failure (HCC)- Primary Chronic diastolic heart failure documented in this encounter Care Teams Funding Analyst Relationship Specialty Start Date End Date Solomon Calvert MD [address] [facility] [address] [place] [address] PCP - General Family Medicine 11/17/24 documented as of this encounter
--- OUTSIDE RECORDS SUMMARY | 2024-11-19 17:46 | XMS_ITS | Referral Summary ---
Author Organization [place] [address] [address] [place] [id number] Care Team Providers Care Outside Salesman Name Role Phone Solomon Calvert MD Primary Care Provider Encounters Date Type Department Care Team Description 11/17/2024 10:45 AM DAG SPRAYER Office Visit [facility] Cardiology [address] [place] [address] [place] [phone] Morales Handy MD Chronic diastolic heart failure (HCC) (Primary Dx) 11/11/2024 Telephone [place] [address] [place] [phone] Morales Handy MD 10/08/2024 1:30 PM DAG SPRAYER Office Visit [facility] Cardiology [address] [place] [address] [place] [phone] Morales Handy MD Chronic diastolic heart failure (HCC) (Primary Dx); Heart failure, unspecified (CMS/HCC) (HCC) 09/17/2024 10:45 AM DAG SPRAYER Office Visit [facility] Cardiology [address] [place] [address] [place] [phone] Morales Handy MD Chronic diastolic heart failure (HCC) (Primary Dx); Longstanding persistent atrial fibrillation (CMS/HCC) (HCC); 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 (CMS/HCC) (HCC) 09/16/2024 Telephone [facility] Cardiology [address] [place] [address] [place] [phone] Morales Handy MD 09/10/2024 10:00 AM DAG SPRAYER Ancillary Procedure [facility] Vascular and Vein Surgery at [address] [place] [phone] 09/09/2024 9:15 AM DAG SPRAYER Ancillary Procedure [facility] Medical Group Cardiology [address] [place] [phone] Heart failure, unspecified (CMS/HCC) (HCC) 09/08/2024 10:45 AM DAG SPRAYER Office Visit [facility] Medical [facility] Cardiology [address] [place] [address] Morales Handy MD Swelling of both lower extremities (Primary Dx); Heart failure, unspecified (CMS/HCC) (HCC); Atrial fibrillation, unspecified type (HCC) from Last 3 Months Allergies Active Allergy Reactions Criticality Noted Date [...] /HCC) 09/17/2024 Chronic diastolic heart failure 09/17/2024 Social History Tobacco Use Types Packs/Day Years Used Date Smoking Tobacco: Never Smokeless Tobacco: Never Tobacco Cessation:Counseling Given: Not Answered Comments Unknown Sex and Gender Information Value Date Recorded Sex Assigned at Not on file Legal Sex Female 2:21 PM DAG SPRAYER Gender Identity Not on file Sexual Orientation Not on file Last Filed Vital Signs Vital Sign Reading Time Taken Comments Blood Pressure 124/62 11/17/2024 10:46 AM DAG SPRAYER Pulse 82 11/17/2024 10:46 AM DAG SPRAYER Temperature - - Respiratory Rate - - Oxygen Saturation 99% 11/17/2024 10:46 AM DAG SPRAYER Inhaled Oxygen Concentration - - Weight 88.5 kg (195 lb) 11/17/2024 10:46 AM DAG SPRAYER Height 160 cm (5' 3 ) 11/17/2024 10:46 AM DAG SPRAYER Body Mass Index 34.54 11/17/2024 10:46 AM DAG SPRAYER Plan of Treatment Not on file Procedures Procedure Name Priority Date/Time Associated Diagnosis Comments ECG 12-LEAD Routine 11/17/2024 1:20 PM DAG SPRAYER Atrial fibrillation, unspecified type (HCC) US VEIN DUPLEX LOWER EXTREMITY BILATERAL COMPLETE Routine 09/10/2024 10:31 AM DAG SPRAYER Swelling of both lower extremities TRANSTHORACIC ECHO (TTE) COMPLETE W DOPPLER/CF WO CONTRAST Routine 09/09/2024 10:21 AM DAG SPRAYER Heart failure, unspecified (CMS/HCC) (HCC) ELECTROCARDIOGRAM REPORT Routine 024 1:36 PM DAG SPRAYER Atrial fibrillation, unspecified type (HCC) XR CHEST PA LATERAL 2 VIEWS Routine 09/08/2024 Heart failure, unspecified (CMS/HCC) (HCC) from Last 3 Months Results * ECG 12 lead (11/17/2024 1:20 PM DAG SPRAYER) us Morales Handy MD ECG ORDERABLES Final Result * US Vein Duplex Lower Extremity Bilateral Complete (09/10/2024 10:31 AM DAG SPRAYER) Anatomical Region Laterality Modality Vascular Bilateral Ultrasound 09/10/2024 9:57 AM DAG SPRAYER Narrative 09/15/2024 4:26 PM DAG SPRAYER Vascular & Vein Surgery [address] [place] [address] Lower Extremity Venous Report Patient Name: NATHALY NARAYAN L ?? : 1940 (83y 9m) ??Gender: F Study Date: 09-10-2024 09:57:52 AM Group Home Paraprofessional: DIDI ??Location: [facility] Order Provider: MORALES HANDY Quality: Adequate Ref Provider: MORALES HANDY ?? PROCEDURES: Vascular Report: A non-invasive [...] above. Electronically Signed By: Nikko Foster MD [facility] 2024-09-15 16:25:56 DAG SPRAYER Procedure Note Nikko Foster MD - 09/15/2024 Vascular & Vein Surgery [address] [place] [id number] Lower Extremity Venous Report Patient Name: MENDEZ, NATHALY, L : 1940 (83y 9m) Gender: F Study Date: 09-10-2024 09:57:52 AM Group Home Paraprofessional: DIDI Location: [facility] Order Provider: MORALES HANDY Quality: Adequate Ref Provider: MORALES HANDY PROCEDURES: Vascular Report: A non-invasive vascular [...] above. Electronically Signed By: Nikko Foster MD [facility] 2024-09-15 16:25:56 DAG SPRAYER us Morales Handy MD IMG US PROCEDURES Final Result * TRANSTHORACIC ECHO (TTE) COMPLETE W DOPPLER/CF WO CONTRAST (09/09/2024 10:21 AM DAG SPRAYER) Anatomical Region Laterality Modality Ultrasound 09/09/2024 9:55 AM DAG SPRAYER Narrative 09/09/2024 3:00 PM DAG SPRAYER [facility] Medical Group Cardiology [address], [place] [address] [address], [place] [address] P:[phone] P:[phone] Echocardiographic Report Patient Name: NATHALY NARAYAN L : 1940 Study Date: 09/09/2024 9:55:43 AM Gender: F Tech: Location: [facility] Provider: MORALES HANDY ?Height(Cm): 163 BSA: 2.04 Weight(Kg): 92.1 Heart Rate: 87 BP: 123 / 91 Quality: Good Order Provider: MORALES HANDY PROCEDURES: Echocardiographic Report: Transthoracic echocardiogram with complete 2D, M-Mode, and color Doppler examination. With Strain Analysis. INDICATIONS: I50.9 Heart failure, unspecified. Measurements: 2D/M Mode ?Doppler Measurement ?Value ?Normal Range ?Measurement ?Value ?Normal Range LVIDd 2D ? 4.12 ? [ 3.80 - 5.20 ] cm ?DOEN Vmax ? 2.07 ? [ 2.00 - [...] FINDINGS: Interpretation Site: Exam was interpreted at [facility]. Left Ventricle: Normal left ventricular size. Mild [...] fibrillation. Electronically Signed By: Austen Salgado MD, [facility] 2024-09-09 14:59:59 DAG SPRAYER Procedure Note Austen Salgado MD - 09/09/2024 [facility] Medical Group Cardiology [address] [facility] [address] [address] [address] [facility] [address], [place] [address] P:[phone] P:[phone] Echocardiographic Report Patient Name: NATHALY NARAYAN L : 1940 Study Date: 09/09/2024 9:55:43 AM Gender: F Tech: Location: [place] Ref Provider: MORALES HANDY Height(Cm): 163 BSA: 2.04 Weight(Kg): 92.1 Heart Rate: 87 BP: 123 / 91 Quality: Good Order Provider: MORALES HANDY PROCEDURES: Echocardiographic Report: Transthoracic echocardiogram with [...] FINDINGS: Interpretation Site: Exam was interpreted at [facility]. Left Ventricle: Normal left ventricular size. Mild [...] fibrillation. Electronically Signed By: Austen Salgado MD, [facility] 2024-09-09 14:59:59 DAG SPRAYER Morales Handy MD CV ECHO PROCEDURES Final Result * Electrocardiogram Report (09/08/2024 1:36 PM DAG SPRAYER) us Morales Handy MD ECG ORDERABLES Final Result * XR Chest Pa Lateral 2 Views (09/08/2024) Anatomical Region Laterality Modality Body, Chest N/A Radiographic Melania ging Morales Handy MD IMG XR PROCEDURES Final Result from Last 3 Months Insurance [facility] Care Teams Outside Salesman Relationship Specialty Start Date End Date Solomon Calvert MD [address] [place] [address] PCP - General Family Medicine 11/17/24
--- OUTSIDE RECORDS SUMMARY | 2024-11-19 17:46 | XMS_ITS | Clinical Summary ---
Author Organization [facility] Address [address] [place] [address] Phone Care Team Providers Care Educational Technology Specialist Name Role Phone Adithya Diaz DO Unavailable [phone] Juliana Dior MD Primary Care Provider [phone] Allergies Active Allergy Reactions Criticality Noted Date Comments Heparin Unknown 01/16/2016 Medications lisinopril (PRINIVIL, ZESTRIL) 20 MG Tablet Take 20 mg by mouth daily. Active torsemide (DEMADEX) 10 MG Tablet Take 10 mg by mouth daily. Active potassium chloride (MICRO-K) 10 MEQ Capsule CR Take 10 mEq by mouth daily. Active Calcium Carb-Cholecalcif chely (CALCIUM 600 + D PO) Take by mouth daily. Active Cholecalciferol (VITAMIN D3) 3000 UNITS Tablet Take by mouth daily. Active Ferrous Sulfate (IRON) 325 (65 FE) MG Tablet Take by mouth 2 times daily. Active Immunizations Immunization Administration Dates Next Due Covid-19, Mrna, Lnp-s, Pf, 30 Mcg/0.3 Ml Dose (P fizer) 01/15/2021,12/23/2020 Family History Medical History Relation Name Comments No Known Problems Father No Known Problems Mother Relation Name Status Comments Father Mother Social History Tobacco Use Types Packs/Day Years Used Date Smoking Tobacco: Never Alcohol Use Standard Drinks/Week Comments Yes 0 (1 standard drink = 0.6 oz pur e alcohol) rarely has a glass of wine Comments Unknown Sex and Gender Information Value Date Recorded Sex Assigned at Not on file Legal Sex Female 11:18 PM CDT Gender Identity Not on file Sexual Orientation Not on file Last Filed Vital Signs Vital Sign Reading Time Taken Comments Blood Pressure 138/82 07/18/2017 1:47 PM CDT Pulse - - Temperature 36.8 ??C (98.2 ??F) 07/18/2017 1:47 PM CD T Respiratory Rate 16 07/18/2017 1:47 PM CDT Oxygen Saturation - - Inhaled Oxygen Concentration - - Weight 94.3 kg (208 lb) 07/18/2017 1:47 PM CDT Height 162.6 cm (5' 4 ) 07/18/2017 1:47 PM CDT Body Mass Index 35.7 07/18/2017 1:47 PM CDT Plan of Treatment Health Maintenance Due Date Last Done Comments DEXA Bone Density 1940 Hepatitis C Virus (HCV) Screening 1940 TdaP Immunization 1940 Pneumococcal Immunization (5 0+ years) (1 of 1 - PCV) 1988 Respiratory Syncytial Virus (RSV) Immunization (Adult) (1 - 1-dose 75+ series) 2013 Zoster Immunization (2 of 3) 10/24/2015 08/29/2015 Influenza Immunization (#1) 06/28/202410/2015, 08/04/2015 SARS-COV-2 Immunization ( - season) 2024 08/19/2021, 01/15/2021, 12/23/2020 Hepatitis B Immunization Aged Out No longer eligible based on patient's age to complete this topic Meningococcal Immunization (ACWY) Aged Out No longer eligible b ased on patient's age to complete this topic Rotavirus Immunization Aged Out No lo nger eligible based on patient's age to complete this topic Insurance MEDICARE [employer]CIAL GENERIC Care Teams Educational Technology Specialist Relationship Specialty Start Date End Date Juliana Dior MD [address] [place] [address] PCP - General Family Medicine 05/08/17 Adithya Diaz DO Gastroenterology 01/12/16
--- OUTSIDE RECORDS SUMMARY | 2024-11-19 17:46 | XMS_ITS | CONTINUITY OF CARE DOCUMENT ---
Author Name hyacinth krystianberto Address Unknown Organization [place] [facility] Address [address] [facility] [address] [place] [address] Phone [phone] Care Team Providers Care Mold Washer Name Role Phone Ruperto Marino MD Unavailable [phone] THERESA MAC MD Unavailable THERESA MAC MD Unavailable [phone] PROBLEMS Condition Status Date Provider Notes Cardiology examination active Ruperto Marino MD Leg edema, bilateral active Ruperto Marino MD Atrial fib, paroxysmal active Ruperto Marino MD GERD active Ruperto Marino MD SLEEP APNEA active Ruperto Marino MD ENCOUNTERS Date Type Provider Location Encounter Diag nosis - In-person encounter Office Visit Ruperto Marino MD [facility] Office - In-person encounter Office Visit Ruperto Marino MD [facility] SLEEP APNEA - In-person encounter Office Visit Ruperto Marino MD [facility] Cardiology examinationLeg edema, bilateralAtrial fib, paroxysmalGERD VITAL SIGNS Date Observation Value Provider oxygen saturation, oximetry 97 % Diann Re[place] respiratory rate E&M 15 /min Diann long pulse rate 82 /min Diann [address] Body Mass Index (Ratio) 38.22 kg/m2 Raisa Marino MD blood pressure, diastolic 83 mm[Hg] Sa ra Valerio blood pressure, systolic 158 mm[Hg] Digna a Valerio respiratory rate E&M 16 /min Delia Si ms oxygen saturation, oximetry 97 % Delia Valerio pulse rate 74 /min Delia Valerio blood pressure, cuff size regular Sa ra Valerio weight E&M 209 [lb_av] Delia Valerio height E&M 62 [in_i] Delia Valerio Body Mass Index (Ratio) 37.71 kg/m2 Raisa Marino MD blood pressure, cuff size large Rachel wernerle [place] blood pressure, diastolic 70 mm[Hg] Rachel hurtado [place] blood pressure, systolic 118 mm[Hg] [facility] sarah [place] oxygen saturation, oximetry 96 % Mei Ashton respiratory rate E&M 18 /min Rosalba Ashton pulse rate 87 /min Mei yin weight E&M 206.2 [lb_av] Mei Armstrong nd height E&M 62 [in_i] Mei yin ALLERGIES Allergy Name Onset Date Reaction Criticality Status HEPARIN High Criticality active RESULTS Date Observation Value Provider Reference Range Interpretation Location calcium, serum 9.0 mg/dL [facility] 8.7-10.3 carbon dioxide, venous blood 27 mmol/L [facility] 20-29 chloride, serum 101 mmol/L [facility] 96-106 potassium, serum 3.9 mmol/L [facility] 3.5-5.2 sodium, serum 143 mmol/L [facility] 768-004 4393/04/16 urea nitrogen/creatini ne ratio, serum 25 [facility] 12-28 creatinine, serum 1.30 mg/dL [facility] 0.57-1.00 High urea nitrogen, blood 33 mg/dL [facility] 8-27 High blood glucose, random 102 mg/dL [facility] 65-99 High pro brain natriuretic peptide 2731 pg/mL [facility] 0-738 High HISTORY OF MEDICATION USE Medication Status Instructions Dates Provider Indications Com ments Xarelto 15 mg tablet active TAKE 1 TABLET BY MOUTH DAILY WITH EVENING MEAL Ruperto Marino MD spironolactone 25 mg tablet active Take 1 tablet by mouth once a day Delia Valerio prednisone 10 mg tablet completed - 7 Mei Ashton metoprolol succinate 25 mg tablet extended release 24 hr active Take 1 tablet by mouth once a day Delia Valerio torsemide 20 mg tablet active take one half in the am and other half in pm Delia Valerio Eliquis 2.5 mg tablet completed - 7 Mei Ashton pantoprazole 40 mg tablet,delayed release (DR/EC) active Take 1 tablet by mouth once a day Delia Valerio furosemide 80 mg tablet completed - 7 Mei Ashton SOCIAL HISTORY Date Observation Value Provider social history reviewed E&M revi ewed - no changes required Ruperto Marino MD social history E&M S moking History: Carlyn talita has never smoked. Ruperto Marino MD seatbelt usage 100 % Diann [place] Exercise counseling yes Diann gonzales caffeine use, averag e drinks per day 2 /d Diann Reyes drug use no Diann Re[place] alcohol use no Diann Re[place] chewing tobacco use Never Diann gonzales smoking status Never smoker Diann Re[place] social history E&M S moking History: Carlyn talita has never smoked. Ruperto Marino MD social history reviewed E&M revi ewed - no changes required Ruperto Marino MD smoking status Never smoker Ruperto Marino MD drug use no Ruperto Marino MD alcohol use, average drinks per day <1 Ruperto Marino MD alcohol use yes Ruperto Marino MD social history E&M S moking History: Carlyn sanon has never smoked. Ruperto Marino MD social history reviewed E&M revi ewed - no changes required Ruperto Marino MD smoking status Never smoker Mei Mitchell and INSURANCE PROVIDERS Payer name Policy type / Coverage type [place] red [employer] Other [id number] ADVANCE DIRECTIVES Name Date DISCUSSED - NO DECISION MADE TREATMENT PLAN Date Name Performer [id number],C,S eems to be in chronic afib and she is on xarelto 15mg for stroke prophylaxis. Ruperto Marino MD [id number],C,S he has mild bilateral GSV reflux. She has worn her compression and it does not seem to be controlling the swelling so I have discussed with her venography and DONNELL. She will think about it and at the same time I am going to begin the process of trying to get her the lymphedema pumps. The other issue is that she has moderate pulmonary HTN and this is causing high right sided pressures which may have led to some of the edema. Ruperto Marino MD [id number],C, P t complains of swelling. WIll recheck an echo to rule out CHF. Will order lab work. Ruperto Marino MD [id number],C, O n Xarelto 15 mg. Not on Eliquis. Ruperto Marino MD [id number],S,w ill check echo, sensilase, venous duplex for reflux Ruperto Marino MD [id number],C,On Xarelto 15 mg Ruperto Marino MD [id number],C,L ikely attributable to age and her TKR, possibly high pressures in her pulmonary circulation, which is not uncommon with AFIB. 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 We will order a Sensilase which will better document perfusion pressure and a Venous reflux study to see if she has significant venous reflux as this would be more likely as a cause of anterior champagne ulcer. We will check Echo to see her right sided pressures. Ruperto Marino MD Cardiology- addresse d:Seems to be in chronic afib and she is on xarelto 15mg for stroke prophylaxis. Ruperto Marino MD Cardiology- addresse d:She has mild bilateral GSV reflux. She has worn her compression and it does not seem to be controlling the swelling so I have discussed with her venography and DONNELL. She will think about it and at the same time I am going to begin the process of trying to get her the lymphedema pumps. The other issue is that she has moderate pulmonary HTN and this is causing high right sided pressures which may have led to some of the edema. Ruperto Marino MD Cardiology: P t complains of swelling. WIll recheck an echo to rule out CHF. Will order lab work. Ruperto Marino MD Cardiology: O n Xarelto 15 mg. Not on Eliquis. Ruperto Marino MD Cardiology:will chec k echo, sensilase, venous duplex for reflux Ruperto Marino MD Cardiology:On Xarelto 15 mg Raisa Marino MD Cardiology:Likely at tributable to age and her TKR, possibly high pressures in her pulmonary circulation, which is not uncommon with AFIB. 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 We will order a Sensilase which will better document perfusion pressure and a Venous reflux study to see if she has significant venous reflux as this would be more likely as a cause of anterior champagne ulcer. We will check Echo to see her right sided pressures. Ruperto Marino MD Date Name Lymphedema Pump ([employer]) PROBNP, N TERMINAL BASIC METABOLIC PANE L W/EGFR Complete Echo Arterial - SENSILASE Complete Echo Venous Doppler Bilat eral LE - Reflux HISTORY OF PROCEDURES Procedure Date Procedure Name Provider Procedure Notes S tatus EKG Ruperto Marino MD completed
== END 2024-11-17 11:12 | disposition home or self-care (01) ==
PROVIDERS: PCP Family Medicine; Visit Provider Internal Medicine
DX: I50.32 Chronic diastolic (congestive) heart failure (principal)
CPT/HCPCS: 36415; 80053; 83880

== ENCOUNTER 2025-07-11 08:07 | Emergency (ER) | payer OTHER, SELFPAY ==
[2025-07-11 08:19] VITALS: BP 96/68; PULSE 86; RESP 18; TEMP 36.4; O2SAT 98
--- NOTE | 2025-07-11 08:28 | ED_ITS ---
HPI - Back Pain/Injury General Chief Complaint: Back Pain/Injury Stated Complaint: Back Pain Time Seen by Provider: 07/11/25 08:28 Source: patient Mode of arrival: ambulatory Limitations: no limitations History of Present Illness HPI Narrative: 84 yo F presents with c/o intermittent sharp stabbing pain to back that lasts a few minutes. States feels like labor pains. Pt reports pain started to center of mid back 3 wks ago and radiates to R side. Itchy and burning. Pain was constant and now intermittent. Ambulatory with steady gait. No radiation of pain to extremities. Denies loss of bowel or bladder. No injury. All systems reviewed and negative except as noted above. Related Data Home Medications ?Medication ?Instructions ?Recorded ?Confirmed ?Last Taken ?Type calcium 600 mg (as 1 tablet PO DAILY 07/10/23 0 04/07/25 Unknown History carbonate)-vitamin D3 10 mcg (400 unit) tablet (Calcium 600 + D(3)) mirabegron 25 mg tablet,extended mg PO 07/11/25 Unkno wn History release 24 hr Allergies Allergy/AdvReac Type Severity Reaction Status Date / Time heparin Allergy Severe Swelling Verified 07/11/25 08:11 Heparin Analogues Allergy Severe Swelling Verified 07/11/25 08:11 cephalexin Allergy Intermediate Rash Verified 07/11/25 08:11 mold Allergy Intermediate Wheezing Verified 07/11/25 08:11 [facility] Past Medical History Medical History Contusion of leg, right Cellulitis of right leg Adverse reaction to antibiotic Localized swelling of right lower leg Positive colorectal cancer screening using Cologuard test History of recent fall Hematoma CHF exacerbation Hyperkalemia Compression fracture of L4 vertebra Gastric ulcer due to nonsteroidal anti-inflammatory drug (NSAID) Orthostatic hypotension Normocytic anemia Acute on chronic blood loss anemia Melena Right-sided thoracic back pain Renal insufficiency Acute renal insufficiency CHF (congestive heart failure) GI bleed GI bleeding Peripheral vascular disease Gastroesophageal reflux disease Borderline diabetes Wound of left leg Hypertensive retinopathy of both eyes Hypertensive heart and chronic kidney disease stage 3 Laceration of leg not thigh, left Congestive heart failure with left ventricular diastolic dysfunction Closed dislocation of right patella Trochanteric bursitis of right hip Atherosclerosis of abdominal aorta Aortic aneurysm Hypertensive retinopathy Hypertensive heart disease with CHF Hives Iliotibial band syndrome affecting right lower leg Right knee pain Abnormal mammogram Mass of upper outer quadrant of right breast Chronic diastolic (congestive) heart failure Encounter for general adult medical examination with abnormal findings Diastolic dysfunction with heart failure Diverticulosis Colonoscopy performed by Dr. Diaz March 2016. Esophageal stricture With history of dilatation. Hiatal hernia Paroxysmal atrial fibrillation Osteopenia after menopause Descending aortic aneurysm (04/07/17) Atrial fibrillation Community acquired pneumonia Shingles (2014) Hypertension Anemia Surgical History Surgical History History of left breast biopsy History of cholecystectomy (11/2013) Status post cataract extraction of both eyes with insertion of intraocular lens History of total bilateral knee replacement Both were replaced in 2001 with right knee periprosthetic fracture March 2015. Family History Family History Mother Family history of arthritis Social History Social History Social History: The patient is and lives in her own home in [place]. She is a lifelong nonsmoker. No alcohol or illicit substance use. She sjuata ignates her daughter Marleni Carrillo as her surrogate decision maker and she wishes to be a full code. Smoking status: Never smoker Second hand tobacco smoke exposure: No Alcohol intake: current Alcohol use details: Occasionally Substance use: never Substance use type: does not use Do You Feel Safe in your Home?: Yes Lack of Transportation: No Lack of Food: Never True Current Housing: I Have Housing Concerned About Future Housing: No Difficulty Paying Gas/Electric Bills: No Difficulty Paying for Meds: No Currently Unemployed: YES Education: Don't Know Difficulty w/ Childcare or Family Care: No Living arrangements: with family Occupation/Education: retired Gender identity (if verbalized by the patient): Female Sexual Orientation (if Verbalized by the Patient): Straight or Heterosexual Spiritual care concerns: No Comments At time of signature, agree with nursing past medical, surgical, social and family history. There is no relevant family history pertinent to the presenting complaint. Exam Narrative: GENERAL: This is a well-nourished, well-developed patient, in no apparent distress. HEAD: normocephalic, atraumatic. EYES: PERRL. Sclera clear/white. Vision is grossly intact. EARS: External ears normal NOSE: External nose normal NECK: Neck supple, non-tender without lymphadenopathy, masses or thyromegaly. CARDIOVASCULAR: Regular rate and rhythm without murmurs, gallops, or rubs. RESPIRATORY: Clear to auscultation. Breath sounds equal bilaterally. No wheezes, rales, or rhonchi. SKIN: warm, Dry, intact with no suspicious lesions or rash, good texture and turgor. NEURO: awake, alert, and oriented to person, place and time. There were no obvious focal neurologic abnormalities. EXTREMITIES: No joint tenderness, effusion, or edema noted. BACK: scabbed lesion to center of mid back and extend to R side of back. mild erythema. tender on palpation Course Course Level of Care: Express Care Visit Vital Signs Vital signs: Vital Signs Temperature 36.4 C 07/11/25 08:19 Pulse Rate 86 07/11/25 08:19 Respiratory Rate 18 07/11/25 08:19 Blood Pressure 96/68 L 07/11/25 08:19 Pulse Oximetry 98 07/11/25 08:19 Oxygen Delivery Room Air 07/11/25 08:19 Temperature 36.4 C 07/11/25 08:19 Pulse Rate 86 07/11/25 08:19 Respiratory Rate 18 07/11/25 08:19 Blood Pressure 96/68 L 07/11/25 08:19 Pulse Oximetry 98 07/11/25 08:19 Oxygen Delivery Room Air 07/11/25 08:19 reviewed MDM - Back Pain/Injury MDM Narrative Medical decision making narrative: pt's back exam concerning for healing shingles lesions. Will prescribe tramadol for pain. unable to prescribe gabapentin due to heparin allergy. Pt is well appearing, nontoxic. no neuro deficits. Will follow up with her PCP. Differential Diagnosis Differential diagnosis: Likely lumbar radiculopathy, sciatica and strain of lumbar region Discharge Plan Discharge Clinical Impression: Post herpetic neuralgia Patient Disposition: Home Condition: Stable Instructions: Shingles (ED) Additional Instructions: Take medication as prescribed. This mediation may cause drowsiness, do not drive while taking it. Follow up with your primary care physician for further evaluation. Patient Language: Filipino Prescriptions: New tramadol 50 mg tablet 50 mg PO Q6H PRN (Reason: pain) Qty: 20 0RF No Action mirabegron 25 mg tablet extended release 24 hr PO calcium carbonate-vitamin D3 [Calcium 600 + D(3)] 600 mg-10 mcg (400 unit) Tablet 1 tablet PO DAILY furosemide 20 mg tablet See Rx Instructions .ROUTE .COMPLEX Qty: 90 1RF Dose Instruction: TAKE 1 TABLET BY MOUTH EVERY MORNING Rx Instructions: TAKE 1 TABLET BY MOUTH EVERY MORNING spironolactone 25 mg tablet See Rx Instructions .ROUTE .COMPLEX Qty: 90 1RF Dose Instruction: TAKE 1 TABLET BY MOUTH EVERY DAY Rx Instructions: TAKE 1 TABLET BY MOUTH EVERY DAY metoprolol succinate 25 mg tablet extended release 24 hr See Rx Instructions .ROUTE .COMPLEX Qty: 90 1RF Dose Instruction: TAKE 1 TABLET BY MOUTH EVERY DAY Rx Instructions: TAKE 1 TABLET BY MOUTH EVERY DAY pantoprazole 40 mg tablet,delayed release (DR/EC) See Rx Instructions .ROUTE .COMPLEX Qty: 90 2RF Dose Instruction: TAKE 1 TABLET BY MOUTH EVERY DAY Rx Instructions: TAKE 1 TABLET BY MOUTH EVERY DAY Xarelto 15 mg tablet See Rx Instructions .ROUTE .COMPLEX Qty: 90 1RF Dose Instruction: TAKE 1 TABLET BY MOUTH EVERY DAY IN THE EVENING WITH A MEAL Rx Instructions: TAKE 1 TABLET BY MOUTH EVERY DAY IN THE EVENING WITH A MEAL Follow-up/Referrals: Solomon Calvert MD [Primary Care Provider, Family Practice] Time of Disposition: 08:40
== END 2025-07-11 08:50 | disposition home or self-care (01) ==
PROVIDERS: Emergency Provider Nurse Practitioner Family; PCP Family Medicine
DX: B02.29 Other postherpetic nervous system involvement (principal); I13.0 Hypertensive heart and chronic kidney disease with heart failure and stage 1 through stage 4 chronic kidney disease, or unspecified chronic kidney disease; N18.30 Chronic kidney disease, stage 3 unspecified; I50.9 Heart failure, unspecified; I73.9 Peripheral vascular disease, unspecified; K21.9 Gastro-esophageal reflux disease without esophagitis; I48.0 Paroxysmal atrial fibrillation; M85.80 Other specified disorders of bone density and structure, unspecified site; H35.033 Hypertensive retinopathy, bilateral; I71.9 Aortic aneurysm of unspecified site, without rupture; Z96.653 Presence of artificial knee joint, bilateral; Z96.1 Presence of intraocular lens; Z98.42 Cataract extraction status, left eye; Z98.41 Cataract extraction status, right eye
CPT/HCPCS: 99213; G0463